=== PATIENT | female | born 1940 | race Caucasian/White ===

== ENCOUNTER → 2023-11-02 08:10 | Outpatient (REF) | payer MEDICARE, BC, SELFPAY ==
[2023-11-02 09:35] LABS: % Eosinophils 4.4 % (0-6); % Immature Granulocytes 0.4 % (0-0.5); % Lymphocytes 25.9 % (20.5-51.1); % Monocytes 8.1 % (1.7-9.3); % Neutrophils 60.2 % (42.2-75.2); Absolute Basophils 0.1 10^3/uL (0-0.2); Absolute Eosinophils 0.2 10^3/uL (0-0.7); Absolute Lymphocytes 1.3 10^3/uL (1.2-3.4); Absolute Monocytes 0.4 10^3/uL (0.1-0.6); Absolute Neutrophils 3.1 10^3/uL (1.4-6.5); Hematocrit 39.2 % (37.0-47.0); Mean Corp Hgb Conc. 33.2 g/dL (33.0-37.0); Mean Corpuscular Hgb 30.3 pg (27.0-31.0); Mean Corpuscular Volume 91.4 fL (81.0-99.0); Mean Platelet Volume 10.9 fL (7.4-10.4); Nucleated Red Blood Cells % 0 %; Platelet Count 256 10^3/uL (130-400); Red Blood Cell Count 4.29 10^6/uL (4.20-5.40); Red Cell Dist. Width 13.8 % (11.5-14.5); White Blood Cell Count 5.2 10^3/uL (4.8-10.8)
[2023-11-02 10:13] LABS: Erythrocyte Sed Rate 21 mm/hour (0-20)
[2023-11-02 10:17] LABS: C-Reactive Protein < 5.00 mg/L (0.0-10.00)
[2023-11-02 10:18] LABS: NT-proBNP 1470 pg/ml
[2023-11-02 10:35] LABS: Vitamin D, 25-OH*** 38.6 ng/mL (30-80)
[2023-11-02 10:48] LABS: TSH 1.69 uIU/ml (0.47-4.68)
[2023-11-02 11:09] LABS: ALT (SGPT) 16 U/L (0-35); AST (SGOT) 29 U/L (14-36); Albumin 4.5 g/dl (3.5-5.0); Alkaline Phosphatase 71 U/L (38-126); Blood Urea Nitrogen 16 mg/dl (7-17); Calcium 9.7 mg/dl (8.4-10.2); Carbon Dioxide 24 mmol/L (22-30); Chloride 97 mmol/L (98-107); Glucose 81 mg/dl (70-99); HDL Cholesterol 69 mg/dl; LDL Cholesterol, Calculated 136 mg/dl; Potassium 4.5 mmol/L (3.5-5.1); Sodium 132 mmol/L (135-145); Total Bilirubin 0.8 mg/dl (0.2-1.3); Total Cholesterol 221 mg/dl (50-199); Total Protein 7.6 g/dl (6.3-8.2); Triglyceride 84 mg/dl (10-149); Very Low Density Lipoprotein 16 mg/dl (0-30); eGFR > 60.00
[2023-11-03 15:35] LABS: Lyme Antibody Screen, EIA Presump. Positive (Negative)
[2023-11-05 17:03] LABS: Lyme Ab Western Blot IgG Negative (Negative); Lyme Ab Western Blot IgM Positive (Negative)
== END ==
LOC: REG 08:10
PROVIDERS: ATTENDING PHYSICIAN Family Medicine
DX: R53.83 Other fatigue (principal); M79.89 Other specified soft tissue disorders; E78.2 Mixed hyperlipidemia; E55.9 Vitamin D deficiency, unspecified
CPT/HCPCS: 36415; 80053; 80061; 82306; 83880; 84443; 85025; 85652; 86140; 86617; 86618

== ENCOUNTER → 2024-05-03 07:30 | Outpatient (REF) | payer MEDICARE, BC, SELFPAY ==
[2024-05-03 10:33] LABS: ALT (SGPT) 20 U/L (0-35); AST (SGOT) 26 U/L (14-36); Albumin 4.5 g/dl (3.5-5.0); Alkaline Phosphatase 64 U/L (38-126); Blood Urea Nitrogen 17 mg/dl (7-17); Calcium 9.9 mg/dl (8.4-10.2); Carbon Dioxide 31 mmol/L (22-30); Chloride 98 mmol/L (98-107); Glucose 80 mg/dl (70-99); HDL Cholesterol 70 mg/dl; LDL Cholesterol, Calculated 138 mg/dl; Potassium 4.8 mmol/L (3.5-5.1); Sodium 137 mmol/L (135-145); Total Bilirubin 0.6 mg/dl (0.2-1.3); Total Cholesterol 233 mg/dl (50-199); Total Protein 7.5 g/dl (6.3-8.2); Triglyceride 129 mg/dl (10-149); Very Low Density Lipoprotein 25 mg/dl (0-30); eGFR > 60.00
== END ==
LOC: REG 07:30
PROVIDERS: ATTENDING PHYSICIAN Family Medicine
DX: E78.2 Mixed hyperlipidemia (principal)
CPT/HCPCS: 36415; 80053; 80061

== ENCOUNTER 2024-09-05 17:38 | Inpatient (IN) | payer MEDICARE, BC, SELFPAY ==
[2024-09-05] VITALS (22 sets, daily range): BP systolic 86–141; BP diastolic 54–111; BMI 26.1
--- NOTE | 2024-09-05 14:58 | ED.GENMED ---
History of Present Illness
General
Chief Complaint: Heart Rate Problem
Source: patient and spouse
Time Seen by Provider: 09/05/24 14:41
History of Present Illness
History of Present Illness:
84-year-old female with past medical history of breast cancer, previous atrial fibrillation (not anticoagulated), hypertension presents to the emergency department for evaluation after she was alerted by her Fitbit around midnight last night stating
she was in an abnormal heart rhythm and her heart rate was high. Patient states that she was not having any symptoms at that time but does state this morning she did feel a little bit of palpitations and mildly short of breath. At present time,
patient notes she is asymptomatic and is denying any chest pain, shortness of breath, diaphoresis, exertional dyspnea, orthopnea, lower extremity edema (notes that she always has a little bit of mild ankle edema secondary to amlodipine use), fevers
or recent illnesses. Patient does note that she recently had a detached retina for which she had surgical procedures on Day and 1 week ago.
Past History
Past History
ED Past Medical History: Arrthythmia, Cancer (Breast cancer) and HTN
ED Past Surgical History: Other (Right lumpectomy)
Social History
Tobacco: Non-smoker
Alcohol: None
Drug: None
Personal:
Living: with family
Employment: Retired
Review of Systems
Review of Systems
All Other Systems: ROS reviewed and negative except as documented in HPI and ROS
Phy Exam
Physical Exam
Physical Exam:
GENERAL: Alert , in no apparent distress
EYE: Subconjunctival hemorrhage to the left eye secondary to recent surgery
NECK: Supple
ENT: o/p clr, mmm.
CARDIAC: Irregularly irregular, tachycardic with rates between 137 bpm and as high as 176 bpm
LUNGS: Clear breath sounds bilaterally, no acute respiratory distress,
ABDOMEN: Soft, without focal tenderness, no r/g, no cvat
NEUROLOGICAL: Alert and oriented
SKIN: Warm and dry, skin intact.
MUSCULOSKELETAL: Trace ankle edema b/l is baseline per patient, well perfused.
PSYCH: Normal and appropriate interaction.
Scores
[id number] Score for Afib Stroke Risk
Age in Years (65=0, 65-74=1, >/=75=2): > or = 75
Sex (Female=+1): Female
Congestive Heart Failure History (Yes=+1): No
Hypertension History (Yes=+1): Yes
Stroke/TIA/Thromboembolism History (Yes=+2): No
Vascular Disease History (Yes=+1): No
Diabetes Mellitus (Yes=+1): No
Score: 4
Anticoagulation Recommendations: Recommend anticoagulation (as validated in nonvalvular fib)
Heart Failure Risk
Heart Failure Risk Score: Not Applicable
Heart Score for Chest Pain Patients
STEMI patient?: Not applicable
Withdrawal Assessment of Alcohol
Withdrawal Assessment Completed?: Not applicable
Course
Orders/Labs/Results
Orders:
Orders
09/05/24 14:16
Electrocardiogram (*1) Urgent
Reason for Study: Palpitations
EKG- Treatment ONCE
09/05/24 14:55
Diltiazem HCl [Cardizem] 10 mg IV NOW STA
09/05/24 15:03
Complete Blood Count/With Diff Urgent
Comprehensive Metabolic Panel Urgent
Magnesium Urgent
PTT Urgent
Prothrombin Time Urgent
TSH Urgent
09/05/24 15:30
Diltiazem 125 mg/125 ml Nss [Cardizem] 125 mg in 125 ml IV PER PROTOCOL
Initial dose in mg/hr, then titrate:: 5
Titrate to keep:: Heart rate 80-100 bpm
Titrate by mg/hr:: 5 mg/hr
Frequency of titrations (minutes):: 15
Maximum dose in mg/hr:: 15
09/05/24 17:11
Admit/Transfer Patient As Directed
Co-Sign Provider:
Level of Care: Inpatient admission
Assign to:: IVU
Physician / Group: Ghazalay
Diagnosis: A-Fib with RVR
Reason for Hospitalization: Cardizem Drip
Expected length of stay greater than two midnights?: Yes
ELOS- Estimated Length of Stay in days: 3
I certify the patient meets the requirements for IP care: Yes
PRN Pain Medication Management As Directed
May give lesser potent ordered pain med per pt: Yes
preference::
Protocol:: Medication orders for pain may be administered in a
manner that supports deferring to patient preference
when the pt is:
- Requesting an ordered lesser potent pain medication.
Least to most potent pain medications are defined
as: acetaminophen < NSAID < tramadol < opioids
(morphine, oxycodone, hydromorphone).
- Requesting a lesser dose of the same medication IF
ORDERED.
- Requesting a less intrusive route of administration
if both routes are prescribed by the provider (PO <
IV).
09/05/24 17:22
Apixaban [Eliquis] 5 mg PO NOW STA
09/05/24 17:23
Code Status As Directed
Resuscitation Status: Full Code
Abnormal Lab Results
09/05/24
15:03
MCH 31.3 H pg
(27.0-31.0)
MPV 10.7 H fL
(7.4-10.4)
Absolute Monos (auto) 0.8 H 10^3/uL
(0.1-0.6)
Lymphocytes % 19.4 L %
(20.5-51.1)
Sodium 133 L mmol/L
(135-145)
BUN 22 H mg/dl
(7-17)
09/05/24 15:03
09/05/24 15:03
Vital Signs
Initial and Last Documented VS:
Initial Vital Signs
Pulse Resp BP Pulse Ox
163 20 137/97 100
09/05/24 14:24 09/05/24 14:24 09/05/24 14:24 09/05/24 14:24
Last Documented Vital Signs
Pulse Resp BP Pulse Ox
145 20 125/82 97
09/05/24 18:45 09/05/24 18:00 09/05/24 18:30 09/05/24 18:45
MDM/Problems Addressed
Differential Diagnosis Includes:
Cardiac arrhythmia, electrolyte derangement, no symptoms to suggest angina/ACS, thyroid disorder
MDM/Problems Addressed:
84-year-old female presenting to the ER for evaluation after her smart watch told her she had an abnormal heart rhythm. On arrival to the ER here patient had EKG performed which showed atrial fibrillation with rapid ventricular rate. Labs ordered.
Patient remains in A-fib with RVR on telemetry during my exam. At this time patient is not a candidate for synchronized cardioversion given she is unaware as to when symptoms may have started and currently asymptomatic so it is entirely possible
patient has had this ongoing for quite some time. Will treat with Cardizem bolus and infusion. Patient has an appointment scheduled with cardiology, Dr. Pichardo, this coming September but has yet to see him. Patient [id number] score is 4 and she
likely does need to be anticoagulated. Will defer heparin to hospitalist/cardiology. Anticipated admission.
Chronic conditions affecting care: Arrhythmia
Acute Exacerbation and/or Progression of Chronic Illness: Arrhythmia
*Pulse Oximetry
Patient hypoxic: no
*EKG
Heart Rate: 154
Rate: tachycardiac
Rhythm: a-fib
[place]: normal axis
*Chemistry Faculty Member Interpretation
Rate: tachycardiac
Rhythm: a-fib
*Critical Care Note
Total Time (30-74mins, 75-104mins- exclusive of procedures): 30
comment:
Critical care statement: A total of 30 minutes of critical care time was provided for this patient. This includes management of unstable vital signs, evaluation of the patient at bedside, reviewing the patient's pertinent medical records, discussion
with consultants, review of old EKGs and review of pertinent medical records. This time with separate from time utilized to perform the aforementioned documented procedures
Patient Management
Discussion with other providers: Hospitalist
Escalation/DeEscalation of care consider admission/obs:
Patient's labs reassuring. She showed improvement of her heart rate to about 120 bpm with Cardizem infusion. Hospitalist team notified and accepts for continued evaluation and treatment. They will consult with cardiology team for further
management.
ED Attending Note
-
Portions of this chart may have been created with voice recognition software.� Occasional wrong word or��sound alike� substitutions may have occurred due to the inherent limitations of voice recognition software.
Discharge Plan
Departure
Patient Disposition: Admit
Date of Disposition: 09/05/24
Time of Disposition: 16:19
Presentation/result/management discussed w/ accepting MD/DO: Hospitalist
Discharge Problem:
Atrial fibrillation with rapid ventricular response
Interventions
Interventions:
*Risk Screen - Suicide Last Done: 09/05/24 14:24
*General Assessment Last Done: 09/05/24 15:12
*Neglect/Abuse Screening Last Done: 09/05/24 15:12
ED- Fall Risk Assessment Last Done: 09/05/24 15:12
ED- Cardiac Assessment Last Done: 09/05/24 15:12
ED- Pulmonary Assessment Last Done: 09/05/24 15:12
[2024-09-05] MEDS: CARDIZEM 10 MG IV (15:03)
[2024-09-05 15:30] LABS: % Basophils 0.7 % (0-2); % Eosinophils 1.8 % (0-6); % Immature Granulocytes 0.5 % (0-0.5); % Lymphocytes 19.4 % (20.5-51.1); % Monocytes 8.7 % (1.7-9.3); % Neutrophils 68.9 % (42.2-75.2); Absolute Basophils 0.1 10^3/uL (0-0.2); Absolute Eosinophils 0.2 10^3/uL (0-0.7); Absolute Lymphocytes 1.7 10^3/uL (1.2-3.4); Absolute Monocytes 0.8 10^3/uL (0.1-0.6); Absolute Neutrophils 6.1 10^3/uL (1.4-6.5); Hematocrit 40.8 % (37.0-47.0); Mean Corp Hgb Conc. 34.3 g/dL (33.0-37.0); Mean Corpuscular Hgb 31.3 pg (27.0-31.0); Mean Corpuscular Volume 91.3 fL (81.0-99.0); Mean Platelet Volume 10.7 fL (7.4-10.4); Nucleated Red Blood Cells % 0 %; Platelet Count 280 10^3/uL (130-400); Red Blood Cell Count 4.47 10^6/uL (4.20-5.40); Red Cell Dist. Width 13.8 % (11.5-14.5); White Blood Cell Count 8.8 10^3/uL (4.8-10.8)
[2024-09-05 15:34] LABS: INR 0.93
[2024-09-05 15:36] LABS: ALT (SGPT) 17 U/L (0-35); AST (SGOT) 20 U/L (14-36); Albumin 4.2 g/dl (3.5-5.0); Alkaline Phosphatase 78 U/L (38-126); Blood Urea Nitrogen 22 mg/dl (7-17); Calcium 9.5 mg/dl (8.4-10.2); Carbon Dioxide 26 mmol/L (22-30); Chloride 99 mmol/L (98-107); Estimated Creatinine Clearance 42 ml/min; Glucose 93 mg/dl (70-99); Magnesium 1.9 mg/dl (1.6-2.3); Potassium 4.6 mmol/L (3.5-5.1); Sodium 133 mmol/L (135-145); Total Bilirubin 0.6 mg/dl (0.2-1.3); Total Protein 7.1 g/dl (6.3-8.2); eGFR > 60.00
[2024-09-05] MEDS: CARDIZEM 125 IV (15:42)
[2024-09-05 16:06] LABS: TSH 2.12 uIU/ml (0.47-4.68)
--- NOTE | 2024-09-05 16:25 | HPS.HSE ---
Family Physician
-
Family Physician: Max Dorsey
Chief Complaint
-
Dizziness and Palpitations
History of Present Illness
Patient is an 84 y/o female past medical history of hypertension, hyperlipidemia, breast cancer and recent retinal detachment surgery who presents with dizziness, palpitation and elevated heart rate. Patient reports over the past few week her
FitBit has been indicating episodes of atrial fibrillation at night. Today after breakfast she was walking around and her FibBit alerted that her heart rate was very elevated. She reports associated dizziness and palpitations. She reports long
history of 'extra heart beats' but has never been diagnosed with atrial fibrillation.
Medical History
Past Medical History
Past Medical History: Reports Other
Additional Past Medical History:
Essential Hypertension
Hyperlipidemia
Breast Cancer s/p Left Lumpectomy
Past Surgical History: Reports Other
Additional Past Surgical History:
Detached Retina Surgery
Left Breast Lumpectomy
Social History
Tobacco: Former Smoker (Quit at age 40)
Alcohol: None
Family History
Family History: Not pertinent
Allergies / Home Medications
Allergies reflects when Allergies were last updated in [facility].
Home Medications with original date entered in [facility]
Allergy/Medication List:
Allergies
Allergy/AdvReac Type Severity Reaction Status Date / Time
Sulfa (Sulfonamide Allergy Severe Anaphylaxis Verified 09/05/24 14:25
Antibiotics)
Home Medications
atenolol 25 mg tablet 25 mg PO QPM 02/04/19
Cbd Gummies 25 mg PO HSPRN PRN sleep 09/05/24
acetaminophen 500 mg tablet (Tylenol Extra Strength) 1,000 mg PO Q6HPRN PRN mild pain 09/05/24
amlodipine 2.5 mg tablet 2.5 mg PO QPM 09/05/24
aspirin 81 mg chewable tablet 81 mg PO DAILYPRN PRN irregular heartbeat 09/05/24
cholecalciferol (vitamin D3) 125 mcg (5,000 unit) tablet (Vitamin D3) 125 mcg PO QPM 09/05/24
erythromycin 5 mg/gram (0.5 %) eye ointment 1 applic LEFT EYE QPM 09/05/24
prednisolone acetate 1 % eye drops,suspension 1 drp LEFT EYE .TAPER 09/05/24
red yeast rice 600 mg tablet 600 mg PO QPM 09/05/24
Review of Systems
-
A 12 point ROS was completed and negative except as noted: Yes
Constitutional: Denies Fever or Chills
Respiratory: Denies Cough or Trouble Breathing
Cardiac: Reports See HPI
Physical Exam
Vital Signs
Vital Signs
Pulse Resp BP Pulse Ox
129 16 136/110 97
09/05/24 16:15 09/05/24 16:00 09/05/24 16:00 09/05/24 16:15
Physical Exam
General: Comfortable and Conversant
HEENT: Anicteric and Moist mucous membranes
Respiratory: Clear and Non Labored Respirations
Cardiac: S1/S2, Irregular Rhythm and Tachycardia
GI: Soft and Non Tender
Rectal: Deferred by Provider
Musculoskeletal: No Clubbing, No Cyanosis and No Edema
Skin: Warm and Dry
Neuro: Awake, Alert, Oriented and Nonfocal/grossly intact
Psych: Calm
Laboratory Results
-
09/05/24 15:03
09/05/24 15:03
Laboratory Results
PT 13.0 Sec (11.4-14.6) 09/05/24 15:03
INR 0.93 09/05/24 15:03
APTT 27.0 Sec (23.4-35.0) 09/05/24 15:03
Total Bilirubin 0.6 mg/dl (0.2-1.3) 09/05/24 15:03
AST 20 U/L (14-36) 09/05/24 15:03
ALT 17 U/L (0-35) 09/05/24 15:03
Alkaline Phosphatase 78 U/L (38-126) 09/05/24 15:03
Data Reviewed
-
Medical Tests (Nuc Med, Echo, EKG etc): Report Reviewed by me (ECG)
Lab Data: Labs Reviewed by me
Impression/Plan
-
Atrial Fibrillation with Rapid Ventricular Response
-Consult Cardiology
-Check Echo
-Continue Cardizem Drip
Recent Left Retina Detachment
-Initial surgery on Jul 17, followed by secondary surgery on Aug 29
-Spoke with Dr. Bonifacio Johns on-call provider for [facility] who reports No Contraindication to starting anticoagulation
Essential Hypertension
-Hold atenolol while on Cardizem drip
-Continue amlodipine with hold parameters
DVT proph: Eliquis
Code Status: Full Code
--- NOTE | 2024-09-05 16:40 | W.PN.UPDATE ---
Addendum entered and electronically signed by Damion Paul MD 09/05/24 17:36:
Recent Left Retina Detachment HX; Initial surgery on Jul 17, followed by secondary surgery on Aug 29
-Pastora SINGH spoke with Dr. Bonifacio Johns on-call provider for [facility] who reports
- No Contraindication to starting anticoagulation for A Fib
Hence, will start Eliquis 5mg BID for new diagnosis of A Fib
Original Note:
Update Note
Progress Note Update
This note serves as an addendum to the H&P by fan installer JOSEPHINE
Pastora DIETERICK
HPI
84F HX Prx AF, Not on AC, HTN, HX Breast CA seen at ER:
- alerted by Laury WALLACE for abn heart rythym
- Noted Hi HR
- this morning she felt palpitations and mildly short of breath.
ROS
At present time, patient notes she is asymptomatic and is denying any chest pain, shortness of breath, diaphoresis, exertional dyspnea, orthopnea, lower extremity edema (notes that she always has a little bit of mild ankle edema secondary to
amlodipine use), fevers or recent illnesses. P
Reviewed VS: BP 135/110 HR 130
PE
Gen: NAD
HEENT: Subconjunctival hemorrhage to the left eye secondary to recent surgery
Neck: symmetric face
Lungs: clear
Cor: Irregularly irregular, tachycardic with rates between 137 bpm and as high as 176 bpm
Abdomen: benign exam
INSTRUCTOR BRIDGE: AAO3
MS: n edema
Psych: neg
Data
Unremarkable CBC and BMP
EKG report
UNDETERMINED RHYTHM
INFERIOR INFARCT , AGE UNDETERMINED
CANNOT RULE OUT ANTERIOR INFARCT , AGE UNDETERMINED
ABNORMAL ECG
WHEN COMPARED WITH ECG OF 05-APR-2001 11:21,
CURRENT UNDETERMINED RHYTHM PRECLUDES RHYTHM COMPARISON, NEEDS REVIEW
QUESTIONABLE CHANGE IN QRS DURATION
INFERIOR INFARCT IS NOW PRESENT
ASSESSMENT & PLAN
Prx AF with FVR
[id number] score -4.8 percent stroke risk per yr ( 1 for age, 1 female 2 for HTN)
- agree rate control with Diltiazem gtt
- ECHO in AM
- CBC card consult to eval for AC
Benign HTN
- cont. Amlodipine
DVT Px: LMWH
Code: Full code
IVU
[2024-09-05] MEDS: ELIQUIS 5 MG PO (17:41)
--- NOTE | 2024-09-05 18:08 | CON.CAR ---
Addendum entered and electronically signed by Adriano Sosa MD 09/05/24 18:30:
I saw and examined the patient.
The WARP WORKER's note was reviewed and I agree with the note.
84-year-old woman with a history of hypertension, breast cancer and recent retinal detachment with last surgical procedure 08/29/2023. Patient presented because her Fitbit had shown fast A-fib. Patient reportedly has had intermittent recordings on
her Fitbit in addition there was a report that she may have had A-fib or an irregular rhythm during her recent echocardiogram. Plan was for outpatient assessment but now presents with an A-fib with RVR. Patient did not feel as well in A-fib,
decreased endurance. No palpitations or heart racing. No history of stroke, diabetes, heart failure, PAD or CAD. No bleeding issues. Note that Dr. Paul did have communication with ophthalmology and no contraindication anticoagulation reported.
Based on the above I would suggest the following
-IV Cardizem for rate control
-Initiate Eliquis
-Will see if patient is having paroxysmal atrial fibrillation and spontaneously converts to sinus rhythm. May be a bit more challenging to consider LALI cardioversion in this patient who has restriction in her positioning post retinal procedure and
is not supposed to lay on her back. If remains in A-fib may consider just continue with rate control and anticoagulation for > 3 weeks and then proceeding with cardioversion
Original Note:
Consultation
Consultation Request
Date/Time Consultation Requested: 09/05/241699
Date/Time Consultation Performed: 09/05/241729
Requesting Provider: Desi BOLANOS
Performing Provider: Jesica MCCARTNEY for Dr. Sosa
Reason for Consultation: AFIB
Medical History
-
Chief Complaint: AFIB
History of Present Illness:
84 y/o female with hypertension, breast CA 2011 with surgery, chemo, radiation, and recent retinal detachment with surgery (July and last week) who is here for evaluation after her smart watch told her she had fast AFIB. She felt worn out with
ambulation, which is unusual for her. She was seen to be in AFIB with RVR. She is on a diltiazem drip. She is in no distress at the time of my assessment.
Of note, she was scheduled to see Dr. Pichardo in October as a new patient for possible AFIB (noted by watch and on an echo prior to her eye surgery per report).
Past Medical History
Past Medical History: Cancer and HTN
Social History
Tobacco: Non-Smoker
Alcohol: None
Personal:
Living: With Family
Family History
Family History: CAD (dad MA age 70) and Other (mom AFIB, CHF)
Allergies / Home Medications
Allergy/AdvReac Type Severity Reaction Status Date / Time
Sulfa (Sulfonamide Allergy Severe Anaphylaxis Verified 09/05/24 14:25
Antibiotics)
�Medication �Instructions �Recorded �Confirmed �Type
atenolol 25 mg tablet 25 mg PO QPM 02/04/19 09/05/24 History
Cbd Gummies 25 mg PO HSPRN PRN sleep 09/05/24 09/05/24 History
acetaminophen 500 mg tablet 1,000 mg PO Q6HPRN PRN mild pain 09/05/24 09/05/24 History
(Tylenol Extra Strength)
amlodipine 2.5 mg tablet 2.5 mg PO QPM 09/05/24 09/05/24 History
aspirin 81 mg chewable tablet 81 mg PO DAILYPRN PRN irregular 09/05/24 09/05/24 History
heartbeat
cholecalciferol (vitamin D3) 125 125 mcg PO QPM 09/05/24 09/05/24 History
mcg (5,000 unit) tablet (Vitamin
D3)
erythromycin 5 mg/gram (0.5 %) eye 1 applic LEFT EYE QPM 09/05/24 09/05/24 History
ointment
prednisolone acetate 1 % eye 1 drp LEFT EYE .TAPER 09/05/24 09/05/24 History
drops,suspension
red yeast rice 600 mg tablet 600 mg PO QPM 09/05/24 09/05/24 History
Review of Systems
-
History Source: Patient
All other systems: Negative unless noted
Constitutional: Other ('punky' with ambulation)
Physical Exam
Vital Signs
Pulse Resp BP Pulse Ox
134 16 120/96 97
09/05/24 17:45 09/05/24 17:00 09/05/24 17:30 09/05/24 17:45
Lab Results
09/05/24 15:03
09/05/24 15:03
Physical Exam
General: Well Developed, Well Nourished and No Apparent Distress
HEENT: Normocephalic and Anicteric
Respiratory: Clear and Non Labored Respirations
Cardiac: Irregular Rhythm
Musculoskeletal: No Edema
Skin: Warm and Dry
Neuro: AO x 3
Psych: Calm
Impression / Plan
-
AFIB, new diagnosis- type and onset unclear:
-continue diltiazem drip for now- this requires intensive monitoring
-patient had recent eye surgery and is not able to lay flat. Will hold off on LALI/CV at this time.
-[id number] score is 4 for age, female, HTN. Primary team checked with Will's eye provider and okay for OAC. Eliquis initiated.
-check echo
-TSH
HTN:
-monitor on diltiazem drip
Data Reviewed
-
EKG: Tracing Personally Visualized and interpreted (AFIB with RVR)
Medical Tests (Nuc Med, Echo etc): Other (echo ordered; holter 07/19/23: Normal sinus rhythm with frequent PAC's and PVC's and short runs of atrial tachycardia.)
Labs: Labs Reviewed by me
--- NOTE | 2024-09-05 20:19 | EDRN ---
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
[2024-09-05] MEDS: PRED FORTE 1% EYE DROPS LEFT EYE (20:55)
[2024-09-05] MEDS: ERYTHROMYCIN 0.5% OPHTHALMIC OINTMENT LEFT EYE (20:55)
[2024-09-05] MEDS: NORVASC 2.5 MG PO (21:01)
[2024-09-05] MEDS: ERYTHROMYCIN 0.5% OPHTHALMIC OINTMENT 1 APPLIC LEFT EYE (21:01)
[2024-09-05] MEDS: PRED FORTE 1% EYE DROPS 1 DROP LEFT EYE (21:01)
[2024-09-06] VITALS (28 sets, daily range): BP systolic 90–127; BP diastolic 57–92; BMI 26.1; BMI 26.2
[2024-09-06] MEDS: TORADOL 10 MG IV (00:35)
[2024-09-06] MEDS: MELATONIN 5 MG PO ×2 (00:54→21:04)
[2024-09-06 06:21] LABS: Hematocrit 38.2 % (37.0-47.0); Mean Corpuscular Volume 91.2 fL (81.0-99.0); Mean Platelet Volume 10.8 fL (7.4-10.4); Platelet Count 266 10^3/uL (130-400); Red Blood Cell Count 4.19 10^6/uL (4.20-5.40); White Blood Cell Count 6.7 10^3/uL (4.8-10.8)
[2024-09-06 06:46] LABS: Blood Urea Nitrogen 13 mg/dl (7-17); Calcium 9.3 mg/dl (8.4-10.2); Carbon Dioxide 24 mmol/L (22-30); Chloride 100 mmol/L (98-107); Estimated Creatinine Clearance 54 ml/min; Glucose 89 mg/dl (70-99); Potassium 4.4 mmol/L (3.5-5.1); Sodium 133 mmol/L (135-145); eGFR > 60.00
[2024-09-06] MEDS: PRED FORTE 1% EYE DROPS 1 DROP LEFT EYE ×3 (08:16→20:03)
[2024-09-06] MEDS: ELIQUIS 5 MG PO ×2 (08:16→20:03)
[2024-09-06] MEDS: CARDIZEM 125 IV ×2 (09:11→17:33)
--- NOTE | 2024-09-06 12:28 | W.PN.HOSP.TC ---
Today's Communication/Plan
-
Monitor vital signs see plan
Continue with Cardizem drip
echo
Continue Eliquis
Assessment / Plan
Assessment / Plan
General: Comfortable and Conversant
HEENT: Anicteric and Moist mucous membranes
Respiratory: Clear and Non Labored Respirations
Cardiac: S1/S2, Irregular Rhythm and Tachycardia
GI: Soft and Non Tender
Musculoskeletal: No Edema
Neuro: Awake, Alert, Oriented and Nonfocal/grossly intact
Psych: Calm
Atrial Fibrillation with Rapid Ventricular Response
Cardiology following
Echo with preserved EF
-Continue Cardizem Drip
TSH wnl
Recent Left Retina Detachment
-Initial surgery on Jul 17, followed by secondary surgery on Aug 29
-Spoke with Dr. Bonifacio Johns on-call provider for [facility] who reports No Contraindication to starting anticoagulation
Essential Hypertension
-Hold atenolol while on Cardizem drip
-Continue amlodipine with hold parameters
DVT proph: Eliquis
Code Status: Full Code
Anticipated Discharge: 24 - 48 hours
Subjective/Interval History
-
Date of Service: September 06, 2024
Denies chest pain
Objective Data
-
Labs:
Laboratory Results
09/06/24
05:33
WBC 6.7
Hgb 13.0
Hct 38.2
Plt Count 266
Sodium 133 L
Potassium 4.4
Chloride 100
Carbon Dioxide 24
BUN 13
Creatinine 0.7
Glucose 89
Calcium 9.3
Vital Signs:
Vital Signs
Temp Pulse Resp BP Pulse Ox
98.7 F 94 16 109/63 96
09/06/24 08:21 09/06/24 10:30 09/06/24 08:21 09/06/24 10:00 09/06/24 11:22
I&O
09/05/24 09/06/24 09/07/24
06:59 06:59 06:59
Intake Total 240 / 240
Balance 240 / 240
--- NOTE | 2024-09-06 13:34 | CM ---
CM following re: discharge planning.
CM consulted to check the arvizu for Eliquis 5mg BID. CM called [facility] pharmacy and the arvizu is $530.00 for 30 day supply.
Reviewed pt's chart, met with pt.
Pt is an 84 year old female, admitted with primary dx of Atrial Fibrillation with Rapid Ventricular Response.
Pt reports she lives with 2SH, 2 steps to enter, has 5 supportive children. 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 No DME, VN or SNF history.
Pt is informed of Eliquis arvizu $530.00 for 30 day supply and pt stated she has $3000.00 deductible and pt stated she will afford to pay. Free 30 days coupon provided.
PCP: Max Dorsey
Pharmacy: [facility].
D/C plan: home with anticipated no needs. family to transport at discharge.
CM will follow with discharge plan updates as hospitalization progresses
--- NOTE | 2024-09-06 14:26 | W.PN.CD ---
Today's Communication / Plan
-
- ECHO today
- Diltiazem gtt for rate control
- Eliquis 5 mg BID
Impression / Plan
-
AFIB, new diagnosis- type and onset unclear:
-continue diltiazem drip for now- this requires intensive monitoring
-Wean off Diltiazem with oral loading.
-Will discontinue Amlodipine and Atenolol and start Ditliazem
-patient had recent eye surgery and is not able to lay flat. Will hold off on LALI/CV at this time.
-[id number] score is 4 for age, female, HTN.
-Eliquis is started at 5 mg BID. Primary team checked with Will's eye provider and okay for OAC.
-Echo: 09/06/24: LVEF 60%. Essentially normal - Mild AI.
-TSH 2.12
HTN:
-monitor on diltiazem drip
- Hold Atenolol and Amlodipine.
- Start Diltiazem 240 mg from AM.
Physical Exam
Vital Signs/Labs
Vital Signs
Temp Pulse Resp BP Pulse Ox
98.3 F 94 16 109/63 96
09/06/24 12:40 09/06/24 10:30 09/06/24 08:21 09/06/24 10:00 09/06/24 11:22
09/05/24 09/06/24 09/07/24
06:59 06:59 06:59
Actual Weight 69.264 kg
09/06/24 05:33
09/06/24 05:33
PT 13.0 Sec (11.4-14.6) 09/05/24 15:03
INR 0.93 09/05/24 15:03
APTT 27.0 Sec (23.4-35.0) 09/05/24 15:03
Magnesium 1.9 mg/dl (1.6-2.3) 09/05/24 15:03
TSH 2.12 uIU/ml (0.47-4.68) 09/05/24 15:03
Physical Exam
Constitutional: No acute distress and Comfortable
EENT: Anicteric and Moist mucous membranes
Cardiovascular: Pedal edema is absent, JVD pressure is normal, Rhythm/rate is irregular and Murmur/rub/gallop absent
Respiratory: Respiratory effort normal, Wheeze Absent and Crackles Absent
GI: Soft, Normal bowel sounds and Distention present
Neuro/Psych: Alert, Oriented and AO x 3
Data Reviewed
-
Date of Service: September 06, 2024
Medical Decision Making: Reviewed Test Results, Test Interpretation and Review of Case with other Provider
EKG: Tracing Personally Visualized and interpreted
Echo: Report Reviewed by me
Labs: Labs Reviewed by me
Old Records: Reviewed
[2024-09-06] MEDS: LANOXIN 250 MCG IV (16:30)
[2024-09-06] MEDS: ERYTHROMYCIN 0.5% OPHTHALMIC OINTMENT 1 APPLIC LEFT EYE (17:34)
[2024-09-06] MEDS: TYLENOL 1000 MG PO (21:04)
[2024-09-07] VITALS (18 sets, daily range): BP systolic 91–117; BP diastolic 58–86; BMI 25.9; BMI 26.3
[2024-09-07 06:25] LABS: Hematocrit 36.4 % (37.0-47.0); Hemoglobin 12.5 g/dL (12.0-16.0); Mean Corp Hgb Conc. 34.3 g/dL (33.0-37.0); Mean Corpuscular Hgb 31.3 pg (27.0-31.0); Mean Corpuscular Volume 91.2 fL (81.0-99.0); Mean Platelet Volume 10.6 fL (7.4-10.4); Platelet Count 239 10^3/uL (130-400); Red Blood Cell Count 3.99 10^6/uL (4.20-5.40); Red Cell Dist. Width 13.7 % (11.5-14.5); White Blood Cell Count 5.6 10^3/uL (4.8-10.8)
[2024-09-07 06:52] LABS: Blood Urea Nitrogen 9 mg/dl (7-17); Calcium 8.8 mg/dl (8.4-10.2); Carbon Dioxide 27 mmol/L (22-30); Chloride 100 mmol/L (98-107); Estimated Creatinine Clearance 54 ml/min; Glucose 94 mg/dl (70-99); Potassium 4.4 mmol/L (3.5-5.1); Sodium 131 mmol/L (135-145); eGFR > 60.00
[2024-09-07] MEDS: CARDIZEM 125 IV (07:01)
[2024-09-07] MEDS: ELIQUIS 5 MG PO ×2 (07:42→20:00)
[2024-09-07] MEDS: CARDIZEM CD 240 MG PO (07:42)
[2024-09-07] MEDS: PRED FORTE 1% EYE DROPS 1 DROP LEFT EYE ×3 (07:43→20:01)
[2024-09-07] MEDS: TOPROL XL 37.5 MG PO ×2 (11:16→20:01)
--- NOTE | 2024-09-07 11:27 | W.PN.HOSP.TC ---
Today's Communication/Plan
-
Monitor vital signs
see plan
Remains in A-fib, uncontrolled
Discussed with cardiology, now on Cardizem and metoprolol
Assessment / Plan
Assessment / Plan
General: Comfortable and Conversant
HEENT: Anicteric and Moist mucous membranes
Respiratory: Clear and Non Labored Respirations
Cardiac: S1/S2, Irregular Rhythm and Tachycardia
GI: Soft and Non Tender
Musculoskeletal: No Edema
Neuro: Awake, Alert, Oriented and Nonfocal/grossly intact
Psych: Calm
Atrial Fibrillation with Rapid Ventricular Response
Cardiology following
Echo with preserved EF
Remains in atrial fibrillation this morning, uncontrolled. Discussed with cardiology. Started metoprolol along with Cardizem.Monitor for hypotension.
patient had recent eye surgery and is not able to lay flat. will try to do cardioversion
cw eliquis
TSH wnl
Recent Left Retina Detachment
-Initial surgery on Jul 17, followed by secondary surgery on Aug 29
-Spoke with Dr. Bonifacio Johns on-call provider for [facility] who reports No Contraindication to starting anticoagulation
Essential Hypertension
Hold atenolol and amlodipine
Continue Cardizem and metoprolol
DVT proph: Eliquis
Code Status: Full Code
Anticipated Discharge: Within 24 hours
Subjective/Interval History
-
Date of Service: September 07, 2024
Anxious this morning
Objective Data
-
Labs:
Laboratory Results
09/07/24
06:05
WBC 5.6
Hgb 12.5
Hct 36.4 L
Plt Count 239
Sodium 131 L
Potassium 4.4
Chloride 100
Carbon Dioxide 27
BUN 9
Creatinine 0.7
Glucose 94
Calcium 8.8
Vital Signs:
Vital Signs
Temp Pulse Resp BP Pulse Ox
97.7 F 95 18 110/67 95
09/07/24 07:50 09/07/24 11:16 09/07/24 09:30 09/07/24 11:16 09/07/24 09:49
I&O
09/06/24 09/07/24 09/08/24
06:59 06:59 06:59
Intake Total 240 / 240 1140 / 1140 262.4 / 262.4
Balance 240 / 240 1140 / 1140 262.4 / 262.4
--- NOTE | 2024-09-07 12:41 | W.PN.CD ---
Today's Communication / Plan
-
stop diltiazem drip
increase PO diltiazem to 180mg bid
add Toprol XL 37.5mg bid, and titrate
continue eliquis
Impression / Plan
-
AFIB, RVR, new diagnosis- type and onset unclear:
-Echo: 09/06/24: LVEF 60%. Essentially normal - Mild AI.
-patient had recent eye surgery and is not able to lay flat. Will hold off on LALI/CV at this time. Will check with Will's eye to see when could perform LALI/DCCV if needed.
-[id number] score is 4 for age, female, HTN.
-Eliquis is started at 5 mg BID. Primary team checked with Will's eye provider and okay for OAC.
-stop diltiazem drip
-increase PO diltiazem to 180mg bid
-add Toprol XL 37.5mg bid, and titrate
HTN:
-monitor BP with meds changes
Physical Exam
Vital Signs/Labs
Vital Signs
Temp Pulse Resp BP Pulse Ox
97.5 F 111 17 110/67 95
09/07/24 12:07 09/07/24 12:00 09/07/24 12:00 09/07/24 11:16 09/07/24 09:49
09/06/24 09/07/24 09/08/24
06:59 06:59 06:59
Actual Weight 69.264 kg 68.266 kg
09/07/24 06:05
09/07/24 06:05
PT 13.0 Sec (11.4-14.6) 09/05/24 15:03
INR 0.93 09/05/24 15:03
APTT 27.0 Sec (23.4-35.0) 09/05/24 15:03
Magnesium 1.9 mg/dl (1.6-2.3) 09/05/24 15:03
TSH 2.12 uIU/ml (0.47-4.68) 09/05/24 15:03
Physical Exam
Constitutional: No acute distress and Comfortable
EENT: Moist mucous membranes
Cardiovascular: Pedal edema is absent, JVD pressure is normal, Systolic murmur absent and Rhythm/rate is irregular
Respiratory: Respiratory effort normal and Lungs clear to auscul.
Neuro/Psych: AO x 3
Data Reviewed
-
Date of Service: September 07, 2024
EKG: Other (Tele: A fib avg 110s)
Labs: Labs Reviewed by me
[2024-09-07] MEDS: MIRALAX 17 GRAMS PO (13:15)
--- NOTE | 2024-09-07 13:44 | PTCARENOTE ---
Verbal report called to receiving RN Fiona in IVU. This Rn will transport pt on monitors in wheel chair with all belongings.
--- NOTE | 2024-09-07 14:34 | PTCARENOTE ---
Rec'd Pt A,A+Ox3, She is in A-fib on the monitor, denies SOB, denies Pain, pleasant and cooperative.
--- NOTE | 2024-09-07 15:10 | CM ---
CM following for DC planning needs.
Met w/ patient and spouse at bedside. Pt. transferred to IVU from ED hold.
Pt. is indep. at baseline w/ ADLs, mobility without the use of any assisted device.
Prior CM had priced Eliquis, estimated to be at 530/month supply.
I had called patient's insurance, [facility] to clarify: [phone]. Spoke w/ medical representative-once annual deductible is met, cost of Eliquis is estimated to be lowered to $120/mo.
I reviewed this with patient and spouse and they are able to afford this. They were given a free 30 d coupon and still have this to use.
No other anticipated needs @ DC.
PLAN: HOME, no needs.
--- NOTE | 2024-09-07 16:07 | PN.CDI ---
CDI
- -
CDI:
Physician Documentation Request
Admit Date: 09/05/24 17:38
Dear Doctor Km,
Patient admitted for atrial fibrillation.
Laboratory Tests
09/05/24 09/06/24 09/07/24
15:03 05:33 06:05
Sodium 133 L 133 L 131 L
Based on the above, could you clarify in the progress notes, the appropriate diagnosis, if significant, that supports the above abnormalities and additional evaluation, monitoring and/or treatment rendered:
Hyponatremia
Lab value insignificant
Other
Use of terms such as suspected, likely, concern for, or probable (associated with a specific diagnosis that is being evaluated, monitored, or treated as if it exists) are acceptable and can be coded in the inpatient setting, when documented at the
time of discharge.
Thank you,
Pita Smith RN, BSN
CDI Specialist
Available via Elizabeth text
Please use your independent medical judgment in providing your response.
[2024-09-07] MEDS: ERYTHROMYCIN 0.5% OPHTHALMIC OINTMENT 1 APPLIC LEFT EYE (18:29)
[2024-09-07] MEDS: CARDIZEM CD 180 MG PO (20:00)
--- NOTE | 2024-09-07 21:11 | PTCARENOTE ---
Received patient at change of shift. Afib on the monitor, HR in the 100s. Educated patient on the purpose on anticoagulation with Afib, pt verbalizes understanding. No complaints from pt at this time, call kevin within reach.
[2024-09-07] MEDS: MELATONIN 5 MG PO (21:30)
[2024-09-08] VITALS (8 sets, daily range): BP systolic 101–125; BP diastolic 63–107; BMI 25.8
[2024-09-08 03:27] LABS: Hematocrit 43.6 % (37.0-47.0); Hemoglobin 14.8 g/dL (12.0-16.0); Mean Corp Hgb Conc. 33.9 g/dL (33.0-37.0); Mean Corpuscular Hgb 31.5 pg (27.0-31.0); Mean Corpuscular Volume 92.8 fL (81.0-99.0); Mean Platelet Volume 10.5 fL (7.4-10.4); Platelet Count 272 10^3/uL (130-400); Red Cell Dist. Width 13.6 % (11.5-14.5); White Blood Cell Count 8.2 10^3/uL (4.8-10.8)
[2024-09-08 03:42] LABS: Blood Urea Nitrogen 7 mg/dl (7-17); Calcium 9.5 mg/dl (8.4-10.2); Carbon Dioxide 27 mmol/L (22-30); Chloride 98 mmol/L (98-107); Estimated Creatinine Clearance 54 ml/min; Glucose 97 mg/dl (70-99); Potassium 4.4 mmol/L (3.5-5.1); Sodium 134 mmol/L (135-145); eGFR > 60.00
--- NOTE | 2024-09-08 06:38 | W.PN.HOSP.TC ---
Today's Communication/Plan
-
Uncontrolled A fib
Remains on BB and CCB
Assessment / Plan
Assessment / Plan
Physical exam:
General: Comfortable and Conversant
HEENT: Anicteric and Moist mucous membranes
Respiratory: Clear and Non Labored Respirations
Cardiac: S1/S2, Irregular Rhythm and Tachycardia
GI: Soft and Non Tender
Musculoskeletal: No Edema
Neuro: Awake, Alert, Oriented and Nonfocal/grossly intact
Psych: Calm
#Paroxysmal Atrial Fibrillation with Rapid Ventricular Response
She feels palpitation upon exertion
Echo with preserved EF
Started metoprolol along with Cardizem. Monitor for hypotension.
patient had recent eye surgery and is not able to lay flat. will try to do cardioversion
cw Eliquis
TSH wnl
#Recent Left Retina Detachment
-Initial surgery on Jul 17, followed by secondary surgery on Aug 29
-Spoke with Dr. Bonifacio Johns on-call provider for [facility] who reports No Contraindication to starting anticoagulation
# Hyponatremia
Mild
#Essential Hypertension
Hold atenolol and amlodipine
Continue Cardizem and metoprolol
DVT proph: Eliquis
Code Status: Full Code
Total time spent to see the patient on the floor, examine the patient, review data and lab results, discuss treatment plan with patient, nursing staff around 55 minutes
Anticipated Discharge: 24 - 48 hours
Subjective/Interval History
-
Date of Service: September 08, 2024
no chest pain
No sob
Still palpitation upon exertion
Objective Data
-
Labs:
Laboratory Results
09/08/24
03:07
WBC 8.2
Hgb 14.8
Hct 43.6
Plt Count 272
Sodium 134 L
Potassium 4.4
Chloride 98
Carbon Dioxide 27
BUN 7
Creatinine 0.7
Glucose 97
Calcium 9.5
Vital Signs:
Vital Signs
Temp Pulse Resp BP Pulse Ox
98 F 99 18 102/70 100
09/08/24 03:09 09/07/24 23:51 09/08/24 03:09 09/07/24 23:51 09/08/24 03:09
I&O
09/06/24 09/07/24 09/08/24
06:59 06:59 06:59
Intake Total 240 / 240 1140 / 1140 472.4 / 472.4
Balance 240 / 240 1140 / 1140 472.4 / 472.4
--- NOTE | 2024-09-08 08:05 | PTCARENOTE ---
Assumed care of pt from prev nsg shift; Pt AAOx3 w/no c/o CP or SOB. Pt's VSS w/HR in the 80's-100's at rest & in the 130's-140's w/activity, which she is limiting. Pt's BP 104/78 this AM. Pt is Afib on telemetry monitoring. Afib book given to &
discussed w/pt & her spouse who is at bedside. Pt requesting to use her prednisone ointment, instead of the drops prescribed here. Dr Brennan notified for order for pharmacy. Pt w/call kvein within reach & no addtl needs at this time.
[2024-09-08] MEDS: TOPROL XL 37.5 MG PO ×2 (09:21→20:38)
[2024-09-08] MEDS: ELIQUIS 5 MG PO ×2 (09:22→20:23)
[2024-09-08] MEDS: CARDIZEM CD 180 MG PO ×2 (09:22→20:23)
[2024-09-08] MEDS: MIRALAX PO (09:23)
[2024-09-08] MEDS: PRED FORTE 1% EYE DROPS 1 DROP LEFT EYE ×3 (09:23→20:23)
--- NOTE | 2024-09-08 14:45 | W.PN.CD ---
Today's Communication / Plan
-
Cont meds
LALI DCCV Tuesday
Impression / Plan
-
AFIB, RVR, new diagnosis- type and onset unclear:
-Echo: 09/06/24: LVEF 60%. Essentially normal - Mild AI.
-patient had recent eye surgery and is not able to lay flat. Will hold off on LALI/CV at this time. Will check with Will's eye to see when could perform LALI/DCCV if needed.
-[id number] score is 4 for age, female, HTN.
-Eliquis is started at 5 mg BID. Primary team checked with Will's eye provider and okay for OAC.
-Cont PO diltiazem to 180mg bid
-Cont Toprol XL 37.5mg bid
- Discussed with Dr Moreno retina specialist oK for LALI DCCV Tuesday
HTN:
-monitor BP with meds changes
Physical Exam
Vital Signs/Labs
Vital Signs
Temp Pulse Resp BP Pulse Ox
97.6 F 81 18 109/78 100
09/08/24 11:18 09/08/24 12:30 09/08/24 11:18 09/08/24 11:18 09/08/24 11:18
09/07/24 09/08/24 09/09/24
06:59 06:59 06:59
Actual Weight 150 lb 8 oz 150 lb 5.684 oz
09/08/24 03:07
09/08/24 03:07
PT 13.0 Sec (11.4-14.6) 09/05/24 15:03
INR 0.93 09/05/24 15:03
APTT 27.0 Sec (23.4-35.0) 09/05/24 15:03
Magnesium 1.9 mg/dl (1.6-2.3) 09/05/24 15:03
TSH 2.12 uIU/ml (0.47-4.68) 09/05/24 15:03
Physical Exam
Constitutional: No acute distress and Comfortable
EENT: Anicteric
Cardiovascular: Rhythm/rate is irregular
Respiratory: Respiratory effort normal and Lungs clear to auscul.
GI: Soft
Neuro/Psych: AO x 3
Data Reviewed
-
Date of Service: September 08, 2024
EKG: Tracing Personally Visualized and interpreted (af)
Echo: Report Reviewed by me
Labs: Labs Reviewed by me
[2024-09-08] MEDS: ERYTHROMYCIN 0.5% OPHTHALMIC OINTMENT 1 APPLIC LEFT EYE (18:23)
[2024-09-08] MEDS: MELATONIN PO (20:41)
[2024-09-08] MEDS: MIRALAX 17 GRAMS PO (21:41)
[2024-09-09] VITALS (8 sets, daily range): BP systolic 93–127; BP diastolic 62–85; BMI 26.0
--- NOTE | 2024-09-09 00:21 | PTCARENOTE ---
Medications reviewed with pt- plan of care discussed for this shift- VSS- Afib on the monitor- 70s-90s. no complaints of palpations.
--- NOTE | 2024-09-09 06:41 | W.PN.HOSP.TC ---
Today's Communication/Plan
-
Agree with cardioversion plan
c/w rate control
NPO past MN
Assessment / Plan
Assessment / Plan
Physical exam:
General: Comfortable and Conversant
HEENT: Anicteric and Moist mucous membranes
Respiratory: Clear and Non Labored Respirations
Cardiac: S1/S2, Irregular Rhythm and Tachycardia
GI: Soft and Non Tender
Musculoskeletal: No Edema
Neuro: Awake, Alert, Oriented and Nonfocal/grossly intact
Psych: Calm
#Paroxysmal Atrial Fibrillation with Rapid Ventricular Response
She feels palpitation upon exertion
Echo with preserved EF
Started metoprolol along with Cardizem. Monitor for hypotension.
patient had recent eye surgery and is not able to lay flat. will try to do cardioversion
cw Eliquis
TSH wnl
#Recent Left Retina Detachment
-Initial surgery on Jul 17, followed by secondary surgery on Aug 29
- Eye doctor at [facility] agreed with cardioversion & Eliquis treatment.
# Hyponatremia
Mild
#Essential Hypertension
Hold atenolol and amlodipine
Continue Cardizem and metoprolol
DVT proph: Eliquis
Code Status: Full Code
Total time spent to see the patient on the floor, examine the patient, review data and lab results, discuss treatment plan with patient, nursing staff around 55 minutes
Anticipated Discharge: 24 - 48 hours
Subjective/Interval History
-
Date of Service: September 09, 2024
Objective Data
-
Vital Signs:
Vital Signs
Temp Pulse Resp BP Pulse Ox
98.1 F 91 18 111/76 97
09/09/24 03:32 09/09/24 03:30 09/09/24 03:32 09/09/24 02:54 09/09/24 03:32
I&O
02/09/08/24 09/09/24
06:59 06:59 06:59
Intake Total 1140 / 1140 472.4 / 472.4 960 / 960
Balance 1140 / 1140 472.4 / 472.4 960 / 960
[2024-09-09] MEDS: CARDIZEM CD 180 MG PO ×2 (08:51→19:28)
[2024-09-09] MEDS: ELIQUIS 5 MG PO ×2 (08:51→19:30)
[2024-09-09] MEDS: TOPROL XL 37.5 MG PO ×2 (08:51→19:30)
[2024-09-09] MEDS: PRED FORTE 1% EYE DROPS 1 DROP LEFT EYE ×4 (08:53→21:37)
--- NOTE | 2024-09-09 09:47 | W.PN.CD ---
Today's Communication / Plan
-
LALI DCCV tomorrow
Impression / Plan
-
AFIB, RVR, new diagnosis- type and onset unclear:
-Echo: 09/06/24: LVEF 60%. Essentially normal - Mild AI.
-patient had recent eye surgery and is not able to lay flat. Will hold off on LALI/CV at this time. Will check with Will's eye to see when could perform LALI/DCCV if needed.
-[id number] score is 4 for age, female, HTN.
-Eliquis is started at 5 mg BID. Primary team checked with Will's eye provider and okay for OAC.
-Cont PO diltiazem to 180mg bid
-Cont Toprol XL 37.5mg bid, will hold tomorrow AM for LALI DCCV
- Discussed with Dr Moreno retina specialist oK for LALI DCCV Tuesday, and OAC
HTN:
-monitor BP with meds changes
Subjective: Feels well no new complaints
Physical Exam
Vital Signs/Labs
Vital Signs
Temp Pulse Resp BP Pulse Ox
97.5 F 109 20 115/85 99
09/09/24 06:54 09/09/24 08:51 09/09/24 06:54 09/09/24 08:51 09/09/24 06:54
09/08/24 09/09/24 09/10/24
06:59 06:59 06:59
Actual Weight 150 lb 5.684 oz 151 lb 7.321 oz
09/08/24 03:07
09/08/24 03:07
PT 13.0 Sec (11.4-14.6) 09/05/24 15:03
INR 0.93 09/05/24 15:03
APTT 27.0 Sec (23.4-35.0) 09/05/24 15:03
Magnesium 1.9 mg/dl (1.6-2.3) 09/05/24 15:03
TSH 2.12 uIU/ml (0.47-4.68) 09/05/24 15:03
Physical Exam
Constitutional: No acute distress and Comfortable
EENT: Anicteric
Cardiovascular: Rhythm/rate is irregular
Respiratory: Respiratory effort normal
GI: Soft
Neuro/Psych: AO x 3
Data Reviewed
-
Date of Service: September 09, 2024
EKG: Tracing Personally Visualized and interpreted (af)
Echo: Report Reviewed by me
Labs: Labs Reviewed by me
--- NOTE | 2024-09-09 18:05 | PTCARENOTE ---
pt continues to be afib on the monitor, hr in the 90s-100s, vss. pt offers no complaints at this time. pt educated on plan of care and pt verbalized understanding. call kevin within reach.
[2024-09-09] MEDS: ERYTHROMYCIN 0.5% OPHTHALMIC OINTMENT 1 APPLIC LEFT EYE (19:28)
[2024-09-09] MEDS: MIRALAX PO (19:43)
--- NOTE | 2024-09-09 20:17 | PTCARENOTE ---
Received patient at change of shift. Patient A&Ox3. Vitals stable. Discussed NPO @ midnight for LALI/ECHO tomorrow for possible CV. Discussed plan of care for evening. Patient verbalized understanding. Call kevin within reach.
[2024-09-09] MEDS: MELATONIN 5 MG PO (21:37)
[2024-09-10 05:43] VITALS: BP 108/83
[2024-09-10 05:47] VITALS: BMI 26.1
[2024-09-10 06:58] VITALS: BP 123/83
[2024-09-10] MEDS: FLUSH (NSS) 1 FLUSH IV (08:03)
[2024-09-10] MEDS: CARDIZEM CD 180 MG PO (08:03)
[2024-09-10] MEDS: ELIQUIS 5 MG PO (08:03)
[2024-09-10] MEDS: PRED FORTE 1% EYE DROPS 1 DROP LEFT EYE ×2 (08:05→13:37)
--- NOTE | 2024-09-10 08:18 | PTCARENOTE ---
Addendum entered by Aye Marquez RN 09/10/24 09:29:
The patient has no complaints of palpitations or dizziness.
Original Note:
The patient is aaox3, vital signs are stable. Afib is noted on the monitor. She has no complaints of SOB. She states 'I'm feeling much better today.' I educated the patient on what to expect during her upcoming LALI/CV. Afib education and was also
reviewed with her.
[2024-09-10 11:18] VITALS: BP 111/64
--- NOTE | 2024-09-10 11:23 | PTCARENOTE ---
Patient's HR fluctuates between 80-120s depending on activity.
--- NOTE | 2024-09-10 12:25 | ITS.CL.CARDI ---
Specimen Collector - Cardioversion
Cardioversion
Procedure Report:
Date of Procedure:09/10/2024
Procedure: Cardioversion.
Indication: Symptomatic Persistentatrial fibrillation.
Performing Physician: Kavya Aguirre MD
Technique: The patient was brought to the holding area. Signed informed consent was obtained. A time out was called and performed. The patient was sedated by a member of the anesthesia service. Anticoagulation status was reviewed and was
appropriate. R-2 pads were placed anteriorly and posteriorly. LALI was performed and showed no evidence of intracardiac thrombus or spontaneous echo contrast.A 200 J synchronized biphasic shock restored normal sinus rhythm without significant
bradycardia. There were no complications.
Conclusion: Uncomplicated cardioversion from Persistent atrial fibrillation to sinus rhythm.
Recommendation: Routine post cardioversion care. Continue mcfp anticoagulation.
cc: Sheila
--- NOTE | 2024-09-10 12:27 | W.PN.CD ---
Today's Communication / Plan
-
successful rosy/dccv
will decreased metoprolol to 25mg po bid
ok for discharge from cardiac perspective
Impression / Plan
-
AFIB, RVR, new diagnosis- persistent
-Echo: 09/06/24: LVEF 60%. Essentially normal - Mild AI.
-[id number] score is 4 for age, female, HTN.
- Dr Rios discussed with Dr Moreno retina specialist oK for ROSY DCCV Tuesday, and OAC
-S/p ROSY/DCCV 09/10/24
-Eliquis is started at 5 mg BID will continue
-Cont PO diltiazem to 180mg bid
-Cont Toprol XL 37.5mg bid---> will decrease to 25mg BID
HTN:
-monitor BP with meds changes
Subjective: Feels well no new complaints, just anxious over procedure
Physical Exam
Vital Signs/Labs
Vital Signs
Temp Pulse Resp BP Pulse Ox
97.4 F 126 20 111/64 99
09/10/24 11:18 09/10/24 11:18 09/10/24 11:18 09/10/24 11:18 09/10/24 11:18
09/09/24 09/10/24 09/11/24
06:59 06:59 06:59
Actual Weight 68.7 kg 69 kg
09/08/24 03:07
09/08/24 03:07
PT 13.0 Sec (11.4-14.6) 09/05/24 15:03
INR 0.93 09/05/24 15:03
APTT 27.0 Sec (23.4-35.0) 09/05/24 15:03
Magnesium 1.9 mg/dl (1.6-2.3) 09/05/24 15:03
TSH 2.12 uIU/ml (0.47-4.68) 09/05/24 15:03
Physical Exam
Constitutional: No acute distress
Cardiovascular: Pedal edema is absent, JVD pressure is normal, Systolic murmur absent and Rhythm/rate is irregular (examined before dccv)
Respiratory: Respiratory effort normal, Lungs clear to auscul., Wheeze Absent, Crackles Absent and Rhonchi Absent
Neuro/Psych: AO x 3
Data Reviewed
-
Date of Service: September 10, 2024
Medical Decision Making: Review of Case with other Provider (updated Dr Barbour, successful dccv)
[2024-09-10 13:44] VITALS: BP 126/69
--- NOTE | 2024-09-10 13:46 | PTCARENOTE ---
Received the patient from the clinical lab assistant in a wheelchair post CV. The patient ambulated to the bed without difficultly. She has no complaints. NSR with a 1st degree AVB and freq PACs and PVCs is noted on the monitor. HR 63 BP 126/69. is at her
bedside.
--- NOTE | 2024-09-10 13:51 | W.PN.HOSP.TC ---
Addendum entered and electronically signed by Carlito Barbour MD 09/10/24 15:25:
Discussed with patient. Aware of not take amlodipine on discharge
Original Note:
Today's Communication/Plan
-
Monitor vital signs see plan
Successful cardioversion
Discharged on metoprolol, Cardizem, Eliquis
Time of discharge 37 minutes
Assessment / Plan
Assessment / Plan
Physical exam:
General: Comfortable and Conversant
HEENT: Anicteric and Moist mucous membranes
Respiratory: Clear and Non Labored Respirations
Cardiac: S1/S2, regular Rhythm and Tachycardia
GI: Soft and Non Tender
Musculoskeletal: No Edema
Neuro: Awake, Alert, Oriented and Nonfocal/grossly intact
Psych: Calm
#Paroxysmal Atrial Fibrillation with Rapid Ventricular Response
She feels palpitation upon exertion
Echo with preserved EF
Started metoprolol along with Cardizem. Monitor for hypotension.
Status post cardioversion 09/10, successful. Per cardiology decrease metoprolol to 25 mg p.o. twice daily. Patient okay to be discharged home from their standpoint.
cw Eliquis
TSH wnl
#Recent Left Retina Detachment
-Initial surgery on Jul 17, followed by secondary surgery on Aug 29
- Eye doctor at [facility] [place] agreed with cardioversion & Eliquis treatment.
# Hyponatremia
Mild
#Essential Hypertension
Hold atenolol and amlodipine
Continue Cardizem and metoprolol
DVT proph: Eliquis
Code Status: Full Code
Anticipated Discharge: Today
Subjective/Interval History
-
Date of Service: September 10, 2024
Denies pain
Objective Data
-
Vital Signs:
Vital Signs
Temp Pulse Resp BP Pulse Ox
97.4 F 142 20 111/64 99
09/10/24 11:18 09/10/24 11:30 09/10/24 11:18 09/10/24 11:18 09/10/24 11:18
I&O
09/09/24 09/10/24 09/11/24
06:59 06:59 06:59
Intake Total 960 / 960 480 / 480
Balance 960 / 960 480 / 480
--- NOTE | 2024-09-10 13:55 | W.DCSUMMARY ---
Discharge Summary
Discharge Data
Date of Admission: 09/05/24
Date of Discharge: 09/10/24
-
Pending Results: No
Hospital Course
84-year-old female with past medical history of recent left retina detachment status post surgery and [facility], hypertension came to the hospital with new onset of atrial fibrillation with rapid ventricular rate. Patient was initially started on
IV Cardizem however her heart rate did not improve so metoprolol was added. Over time her atrial fibrillation was still uncontrolled so cardiology spoke with [facility] and they were okay with patient getting cardioversion. Patient then underwent
cardioversion on 09/10/2024 which was successful. For anticoagulation patient was started on Eliquis. Since patient was started on Cardizem and metoprolol which was new, her home atenolol and amlodipine was discontinued. Echocardiogram was also
done which showed preserved ejection fraction. Once her symptoms continue to improve, she was then discharged home with instructions to follow-up with all her physicians outpatient.
Discharge Plan
-
Patient Disposition: Home (Routine Discharge)
Discharge Diagnosis/Procedures: New onset atrial fibrillation with rapid ventricular rate
Recent retinal detachment
Hyponatremia
Diet: As tolerated
Activity: As tolerated
Driving Restrictions: As prior to admission
Bathing Restrictions: None
Referrals:
Shruthi Rivera CRNP [Specified Professional Personl] - 10/03/24 11:20 am
Max Dorsey MD [Family Provider] - in less than 1 week
Prescriptions:
New
diltiazem HCl 180 mg Capsule,Extended Release 24hr
180 mg PO BID Qty: 60 0RF
metoprolol succinate 25 mg Tablet Extended Release 24 Hr
25 mg PO BID Qty: 60 0RF
Eliquis 5 mg Tablet
5 mg PO BID Qty: 60 0RF
Continued
acetaminophen [Tylenol Extra Strength] 500 mg Tablet
1,000 mg PO Q6HPRN PRN (Reason: mild pain)
prednisolone acetate 1 % Drops,Suspension
1 drp LEFT EYE .TAPER
Patient Comments:
09/05/24: started 09/04/24, to take 1 drp TID for 1 week, BID for 1 week, then QD for 1 week.
erythromycin 5 mg/gram (0.5 %) Ointment
1 applic LEFT EYE QPM
cholecalciferol (vitamin D3) [Vitamin D3] 125 mcg (5,000 unit) Tablet
125 mcg PO QPM
red yeast rice 600 mg Tablet
600 mg PO QPM
Cbd Gummies
25 mg PO HSPRN PRN (Reason: sleep)
Discontinued
atenolol 25 MG tablet
25 mg PO QPM
aspirin 81 mg Tablet,Chewable
81 mg PO DAILYPRN PRN (Reason: irregular heartbeat)
amlodipine 2.5 mg Tablet
2.5 mg PO QPM
Discharge Orders:
Discharge Patient (As Directed); Ordered 09/10/24
Ordered By: Carlito Barbour
Discharge Date and Time
Discharge Date/Time: 09/10/24 14:39
Print Language: MOHAWK
[2024-09-10 14:11] VITALS: BP 143/65
[2024-09-10 14:12] VITALS: BP 143/65
--- NOTE | 2024-09-10 14:38 | PTCARENOTE ---
Patient discharged home.
== END 2024-09-10 14:39 | disposition home or self-care (01) | DRG 309 ==
LOC: IVU 17:38
PROVIDERS: Internal Medicine Cardiovascular Disease; Physician Assistant Medical; ADMITTING PHYSICIAN Internal Medicine; ATTENDING PHYSICIAN Internal Medicine; CONSULT PHYSICIAN Internal Medicine Cardiovascular Disease; EMERGENCY PHYSICIAN Emergency Medicine; FAMILY PHYSICIAN Family Medicine
PROC: B24BZZ4 Ultrasonography of Heart with Aorta, Transesophageal (ICD-10-PCS; 2024-09-10)
PROC: 5A2204Z Restoration of Cardiac Rhythm, Single (ICD-10-PCS; 2024-09-10)
DX: I48.19 Other persistent atrial fibrillation (principal); E87.1 Hypo-osmolality and hyponatremia; I10 Essential (primary) hypertension; E78.5 Hyperlipidemia, unspecified; Z85.3 Personal history of malignant neoplasm of breast; Z87.891 Personal history of nicotine dependence; Z88.2 Allergy status to sulfonamides; Z82.49 Family history of ischemic heart disease and other diseases of the circulatory system; Z79.82 Long term (current) use of aspirin; Z79.899 Other long term (current) drug therapy
CPT/HCPCS: 80048; 80053; 83735; 84443; 85025; 85027; 85610; 85730; 92960; 93005; 93306; 93312; 93320; 93325; 96374; 99291; J1160

== ENCOUNTER 2024-09-28 14:24 | Emergency (ER) | payer MEDICARE, BC, SELFPAY ==
[2024-09-28 14:39] VITALS: BP 171/81
[2024-09-28 15:22] LABS: % Basophils 0.7 % (0-2); % Immature Granulocytes 0.5 % (0-0.5); % Lymphocytes 18.6 % (20.5-51.1); % Monocytes 8.3 % (1.7-9.3); % Neutrophils 69.9 % (42.2-75.2); Absolute Basophils 0.1 10^3/uL (0-0.2); Absolute Eosinophils 0.2 10^3/uL (0-0.7); Absolute Lymphocytes 1.6 10^3/uL (1.2-3.4); Absolute Monocytes 0.7 10^3/uL (0.1-0.6); Absolute Neutrophils 5.8 10^3/uL (1.4-6.5); Hematocrit 43.2 % (37.0-47.0); Hemoglobin 14.7 g/dL (12.0-16.0); Mean Corpuscular Hgb 30.8 pg (27.0-31.0); Mean Corpuscular Volume 90.6 fL (81.0-99.0); Mean Platelet Volume 10.2 fL (7.4-10.4); Nucleated Red Blood Cells % 0 %; Platelet Count 287 10^3/uL (130-400); Red Blood Cell Count 4.77 10^6/uL (4.20-5.40); Red Cell Dist. Width 13.9 % (11.5-14.5); White Blood Cell Count 8.3 10^3/uL (4.8-10.8)
[2024-09-28 15:38] LABS: ALT (SGPT) 20 U/L (0-35); AST (SGOT) 22 U/L (14-36); Albumin 4.9 g/dl (3.5-5.0); Alkaline Phosphatase 84 U/L (38-126); Blood Urea Nitrogen 20 mg/dl (7-17); Calcium 9.9 mg/dl (8.4-10.2); Carbon Dioxide 27 mmol/L (22-30); Chloride 98 mmol/L (98-107); Glucose 102 mg/dl (70-99); Potassium 4.7 mmol/L (3.5-5.1); Sodium 134 mmol/L (135-145); Total Bilirubin 0.7 mg/dl (0.2-1.3); Total Protein 7.9 g/dl (6.3-8.2); eGFR > 60.00
[2024-09-28 15:58] LABS: Troponin I < 0.012 ng/ml
--- NOTE | 2024-09-28 17:34 | ED.GENMED ---
History of Present Illness
General
Chief Complaint: Heart Rate Problem
Time Seen by Provider: 09/28/24 17:34
History of Present Illness
History of Present Illness:
TIME OF INITIAL ENCOUNTER: 5:30 PM
HPI: Admitted to hospital 09/05/2024 w/ new onset rapid afib. At that time, she recently had retinal detachment surgery and did not have [facility] cardioversion until 09/10/2024 as an inpatient with [facility]; [facility]. Has
been on Eliquis since then. [employer] indicated she was back in AFib this morning at 9:30am. Here, she is rate controlled AFib w/ rates in 80s.
EXAM:
GENERAL: Well appearing in no distress
HEENT: Moist oral mucosa
CARDIOVASCULAR: No murmurs, normal heart rate, irregular rhythm, No chest wall tenderness
PULMONARY: No respiratory distress, breath sounds are clear and equal
ABDOMEN: Soft with no peritoneal signs, no tenderness
NEUROLOGIC: Excellent strength all extremities, no coordination deficits
PSYCHIATRIC: Appropriate mental status, normal insight and judgement
EXTREMITIES: Nontender, no edema, moves all extremities equally
SKIN: No rash, no lesions
NUMBER AND COMPLEXITY OF PROBLEMS ADDRESSED AT THE ENCOUNTER
� Chronic conditions affecting care: A-fib on Eliquis, breast cancer, former smoker
� Acute Exacerbation and/or Progression of Chronic Illness: This is an acute problem
� Differential Diagnosis includes: Recurrence of atrial fibrillation
AMOUNT AND/OR COMPLEXITY OF DATA TO BE REVIEWED AND ANALYZED
� I performed an independent evaluation of and my interpretation is:
EKG: A-fib/flutter rate of 89, left axis deviation
CT:
X-rays:
Laboratory Studies: CBC and chemistries unremarkable, troponin less than 0.012
Other:
� Review of other/old records: I reviewed the discharge summary and cardiology notes from last admission when she was cardioverted by Dr. Aguirre
� Clinical information was obtained by an independent historian: None needed
� Prescriptions/Medications Considered but not given:
� Further testing considered but not performed:
RISK OF COMPLICATIONS AND/OR MORBIDITY OR MORTALITY OF PATIENT MANAGEMENT
� Social determinants of health affecting care: Lives at home
� Discussion with other providers: As patient has several concerns, I notified cardiology, Dr. Sosa.
� Escalation of care including admission/observation vs risk of discharge considered: While in ED, the patient converted back to a sinus rhythm without any intervention.
ANY OTHER UPDATES:
I discussed case with Dr. Sosa who is trying to arrange closer outpatient follow-up. Their office should call her. At his recommendation, I informed patient that she could take an extra metoprolol dose if symptoms recur.
Past History
Past History
ED Past Medical History: Arrthythmia, Cancer (Breast cancer) and HTN
ED Past Surgical History: Other (Right lumpectomy)
Social History
Tobacco: Non-smoker
Alcohol: None
Drug: None
Personal:
Living: with family
Employment: Retired
Phy Exam
Physical Exam
Physical Exam:
See HPI
Course
Orders/Labs/Results
Orders:
Orders
09/28/24 14:25
Electrocardiogram (*1) Urgent
Reason for Study: Tachycardia
EKG- Treatment ONCE
09/28/24 15:08
Complete Blood Count/With Diff Urgent
Comprehensive Metabolic Panel Urgent
Troponin I Urgent
09/28/24 17:50
Electrocardiogram (*1) Urgent
Reason for Study: Palpitations
EKG- Treatment ONCE
Abnormal Lab Results
09/28/24
15:08
Absolute Monos (auto) 0.7 H 10^3/uL
(0.1-0.6)
Lymphocytes % 18.6 L %
(20.5-51.1)
Sodium 134 L mmol/L
(135-145)
BUN 20 H mg/dl
(7-17)
Glucose 102 H mg/dl
(70-99)
09/28/24 15:08
09/28/24 15:08
Vital Signs
Initial and Last Documented VS:
Initial Vital Signs
Temp Pulse Resp BP Pulse Ox
36.6 C 91 16 171/81 98
09/28/24 14:39 09/28/24 14:39 09/28/24 14:39 09/28/24 14:39 09/28/24 14:39
Last Documented Vital Signs
Temp Pulse Resp BP Pulse Ox
36.6 C 87 17 171/81 97
09/28/24 14:39 09/28/24 18:30 09/28/24 18:30 09/28/24 14:39 09/28/24 18:30
*Critical Care Note
Total Time (30-74mins, 75-104mins- exclusive of procedures): Not Applicable
ED Attending Note
-
Portions of this chart may have been created with voice recognition software.� Occasional wrong word or��sound alike� substitutions may have occurred due to the inherent limitations of voice recognition software.
Discharge Plan
Departure
Patient Disposition: Home (Routine Discharge)
Date of Disposition: 09/28/24
Time of Disposition: 18:23
Patient with high blood pressure during this ER visit?: Yes
Discharge Problem:
Atrial fibrillation
Prescriptions:
No Action
acetaminophen [Tylenol Extra Strength] 500 mg Tablet
1,000 mg PO Q6HPRN PRN (Reason: mild pain)
prednisolone acetate 1 % Drops,Suspension
1 drp LEFT EYE .TAPER
Patient Comments:
09/05/24: started 09/04/24, to take 1 drp TID for 1 week, BID for 1 week, then QD for 1 week.
erythromycin 5 mg/gram (0.5 %) Ointment
1 applic LEFT EYE QPM
cholecalciferol (vitamin D3) [Vitamin D3] 125 mcg (5,000 unit) Tablet
125 mcg PO QPM
red yeast rice 600 mg Tablet
600 mg PO QPM
Cbd Gummies
25 mg PO HSPRN PRN (Reason: sleep)
diltiazem HCl 180 mg Capsule,Extended Release 24hr
180 mg PO BID Qty: 60 0RF
metoprolol succinate 25 mg Tablet Extended Release 24 Hr
25 mg PO BID Qty: 60 0RF
Eliquis 5 mg Tablet
5 mg PO BID Qty: 60 0RF
Referrals:
Fco Pichardo MD [Active] - Follow up in 2-3 days
Max Dorsey MD [Family Provider] -
Activity Restrictions/Additional Instructions:
Prior to discharge, your heart rate is back in a normal kind of sinus rhythm. Your initial EKG was atrial fibrillation and then without any intervention went back to sinus rhythm. Your blood pressure has been high. I spoke to Dr. Pichardo's
associate, Dr. Sosa. Somebody from their office will call you next week to try to get you an earlier appointment. If you do not hear from them by 12:30 PM on Tuesday, you can call their office. If your symptoms are minimal and you go back into
atrial fibrillation you do not necessarily need to come to the emergency department however if you are feeling unwell, you should come back to the ER. Dr. Sosa also indicated that if you go back into atrial fibrillation you could take an extra
metoprolol 25 mg in addition to what you would normally take.
Interventions
Interventions:
*Risk Screen - Suicide Last Done: 09/28/24 14:39
*Neglect/Abuse Screening Last Done: 09/28/24 14:39
*Nursing Disposition Last Done: 09/28/24 18:45
ED- Cardiac Assessment Last Done: 09/28/24 17:19
ED- Pulmonary Assessment Last Done: 09/28/24 17:19
Discharge Date and Time
Discharge Date/Time: 09/28/24 19:15
Print Language: GHANAIAN
== END 2024-09-28 19:15 | disposition home or self-care (01) ==
LOC: EMR 14:24
PROVIDERS: Student in an Organized Health Care Education/Training Program; EMERGENCY PHYSICIAN Emergency Medicine; FAMILY PHYSICIAN Family Medicine
DX: I48.91 Unspecified atrial fibrillation (principal); I10 Essential (primary) hypertension; Z79.01 Long term (current) use of anticoagulants
CPT/HCPCS: 99284; 80053; 84484; 85025; 93005

== ENCOUNTER → 2024-10-31 08:47 | Outpatient (REF) | payer MEDICARE, BC, SELFPAY ==
[2024-10-31 11:07] LABS: ALT (SGPT) 20 U/L (0-35); AST (SGOT) 25 U/L (14-36); Albumin 4.2 g/dl (3.5-5.0); Alkaline Phosphatase 81 U/L (38-126); Blood Urea Nitrogen 18 mg/dl (7-17); Calcium 10.1 mg/dl (8.4-10.2); Carbon Dioxide 28 mmol/L (22-30); Chloride 101 mmol/L (98-107); Glucose 89 mg/dl (70-99); HDL Cholesterol 64 mg/dl; LDL Cholesterol, Calculated 135 mg/dl; Potassium 5.3 mmol/L (3.5-5.1); Sodium 138 mmol/L (135-145); Total Bilirubin 0.8 mg/dl (0.2-1.3); Total Cholesterol 222 mg/dl (50-199); Total Protein 7.4 g/dl (6.3-8.2); Triglyceride 119 mg/dl (10-149); Very Low Density Lipoprotein 23 mg/dl (0-30); eGFR > 60.00
[2024-10-31 18:08] LABS: Vitamin D, 25-OH*** 41.9 ng/mL (30-80)
== END ==
LOC: REG 08:47
PROVIDERS: ATTENDING PHYSICIAN Family Medicine
DX: E78.2 Mixed hyperlipidemia (principal); E55.9 Vitamin D deficiency, unspecified
CPT/HCPCS: 36415; 80053; 80061; 82306

== ENCOUNTER → 2024-12-12 14:00 | Outpatient (REF) | payer MEDICARE, BC, SELFPAY ==
[2024-12-13 10:03] LABS: Blood Urea Nitrogen 13 mg/dl (7-17); Calcium 9.7 mg/dl (8.4-10.2); Carbon Dioxide 28 mmol/L (22-30); Chloride 103 mmol/L (98-107); Glucose 82 mg/dl (70-99); Potassium 4.4 mmol/L (3.5-5.1); Sodium 138 mmol/L (135-145); eGFR > 60.00
== END ==
LOC: REG 14:00
PROVIDERS: ATTENDING PHYSICIAN Family Medicine
DX: E87.5 Hyperkalemia (principal)
CPT/HCPCS: 36415; 80048

== ENCOUNTER → 2024-12-24 13:08 | Outpatient (REF) | payer MEDICARE, BC, SELFPAY ==
[2024-12-24 13:38] LABS: % Basophils 0.6 % (0-2); % Immature Granulocytes 0.3 % (0-0.5); % Lymphocytes 19.7 % (20.5-51.1); % Neutrophils 68.4 % (42.2-75.2); Absolute Basophils 0.1 10^3/uL (0-0.2); Absolute Eosinophils 0.2 10^3/uL (0-0.7); Absolute Lymphocytes 1.6 10^3/uL (1.2-3.4); Absolute Monocytes 0.7 10^3/uL (0.1-0.6); Absolute Neutrophils 5.5 10^3/uL (1.4-6.5); Hematocrit 39.9 % (37.0-47.0); Hemoglobin 13.5 g/dL (12.0-16.0); Mean Corp Hgb Conc. 33.8 g/dL (33.0-37.0); Mean Corpuscular Hgb 31.3 pg (27.0-31.0); Mean Corpuscular Volume 92.4 fL (81.0-99.0); Mean Platelet Volume 10.5 fL (7.4-10.4); Nucleated Red Blood Cells % 0 %; Platelet Count 270 10^3/uL (130-400); Red Blood Cell Count 4.32 10^6/uL (4.20-5.40); Red Cell Dist. Width 13.2 % (11.5-14.5)
[2024-12-24 14:14] LABS: ALT (SGPT) 21 U/L (0-35); AST (SGOT) 25 U/L (14-36); Albumin 4.4 g/dl (3.5-5.0); Alkaline Phosphatase 70 U/L (38-126); Blood Urea Nitrogen 15 mg/dl (7-17); Calcium 9.7 mg/dl (8.4-10.2); Carbon Dioxide 26 mmol/L (22-30); Chloride 101 mmol/L (98-107); Glucose 88 mg/dl (70-99); Potassium 4.5 mmol/L (3.5-5.1); Sodium 134 mmol/L (135-145); Total Bilirubin 0.5 mg/dl (0.2-1.3); Total Protein 7.5 g/dl (6.3-8.2); eGFR > 60.00
== END ==
LOC: SDSPAT 13:08
PROVIDERS: ATTENDING PHYSICIAN Internal Medicine Cardiovascular Disease; FAMILY PHYSICIAN Family Medicine; OTHER PHYSICIAN Internal Medicine
DX: I48.0 Paroxysmal atrial fibrillation (principal)
CPT/HCPCS: 36415; 80053; 85025; 86850; 86900; 86901

== ENCOUNTER 2025-01-01 08:00 | Day surgery (SDC) | payer MEDICARE, BC, SELFPAY ==
[2024-12-24 13:17] VITALS: BMI 27.6
[2025-01-01] VITALS (15 sets, daily range): BP systolic 101–143; BP diastolic 53–73
--- NOTE | 2025-01-01 12:43 | ITS.CL.ABL ---
[facility] [facility] - Ablation
Ablation
Procedure Report:
AFIB ablation:
Ms. Falcon is a very pleasant 84 yr old woman with h/o paroxysmal atrial fibrillation / flutters, atrial tachycardia, PACs /PVCs and NSVT presented today to the EP lab for atrial fibrillation / flutter /SVT/PVC ablation.
Date of Procedure:
01/01/2025
Indications:
Recurrent symptomatic atrial fibrillation / atrial flutter / SVT
Pre-Operative Diagnosis:
Paroxysmal atrial fibrillation /Multiple Atrial flutter / Atrial tachycardia
Post-Operative Diagnosis:
Paroxysmal atrial fibrillation /Multiple Atrial flutter / Atrial tachycardia
Procedure Performed:
Atrial fibrillation ablation with pulmonary vein isolation
Left atrial flutter � roof dependent ablation
Posterior wall isolation
Anterior wall atrial tachycardia ablation
Anterior wall mitral flutter ablation
Typical atrial flutter with Cavo tricuspid isthmus (CTI) ablation
Performing Physician:
Sury Ha MD
Assistants:
EP staff
Anesthesia:
See anesthesia records
Detailed Description of the Procedure:
Written informed consent was obtained from the patient after a full explanation of the risks and benefits of the procedure including the risks of sedation and anesthesia.
The patient was brought to the electrophysiology laboratory in stable condition in fasting state. Continuous electrocardiographic and hemodynamic monitoring was initiated.
The initial rhythm was sinus bradycardia.
Time out:
The procedure site was meticulously prepared with surgical scrub and allowed to dry with no pooling. Sterile draping was applied to cover the procedure site. The image intensifier was draped with sterile bag and positioned over the patient.
Prior to the start of the procedure a surgical pause was performed with in agreement from anesthesia, EP staff with double identifier and explanation of the procedure, plan and site of the procedure stated with allergies and medications and
pertinent labs reviewed.
After infusion of local anesthetic, vascular access was obtained under ultrasound guidance and sheaths were placed over guide wire as detailed below. The images were stored in patient chart.
Sheaths:
��������������� Agilis sheath in right femoral vein upgraded from 8Fr in right femoral vein
��������������� 9Fr in right femoral vein
��������������� 7Fr in right femoral vein
Catheters:
��������������� The Affera Sphere 9 catheter -bidirectional D/F� - at locations of HRA, RV, LA and LV.
��������������� ICE catheter - at locations of RA, SVC, and RV.
��������������� Bard decapolar catheter � In RA and CS
���������������
A 7000 units of heparin was given
Intracardiac ECHO:
An 8-Swedish AcuNav intracardiac ECHO (ICE) probe was advanced through the 9-Swedish sheath in the right femoral vein into the right atrium under fluoroscopic and ICE ultrasound image guidance and a baseline ECHO study was performed. The left atrial
size was severely dilated. There was trace tricuspid regurgitation. There was mild mitral regurgitation. There was mildly reduced left ventricular systolic function. There is trace pericardial effusion. All the four veins were identified and has
good flow identified. No definite clot seen.�
During the procedure, ICE was used for monitoring of complications, guidance of trans-septal puncture, monitor the catheter position and tracking ablation lesions. No change in the pericardial space noted throughout the procedure.
Trans-septal Puncture:
Heparin was initiated and infused to maintain appropriate ACT. A J-tipped guidewire was advanced through into the superior vena cava under fluoroscopic and ICE guidance. The Agilis sheath was advanced into the superior vena cava over a guidewire. A
BRK needle with stylet was advanced inside the Agilis sheath. The apparatus was withdrawn until it was in contact with the fossa ovalis. The position was adjusted based on fluoroscopy and ultrasound images from ICE. Under fluoroscopic, hemodynamic
and ICE ultrasound guidance, left atrium was cannulated by advancing the needle. Once atrial septum was cannulated, the needle was pulled back and the guide wire was advanced through the needle into the left atrium. The guide wire was advanced into
the left superior pulmonary vein. Both the sheath and the dilator was advanced into the left atrium. The dilator with the needle was withdrawn. Blood was aspirated from the Agilis sheath and arterial blood confirmed. The sheath was flushed. Saline
injection noted into the left atrium on ICE. The waveform of the LA pressure was recorded. The mapping catheter was advanced in the Agilis sheath into the left pulmonary vein.
3D Electroanatomic Mapping:
Using the Sphere 9 Affera catheter advanced through Agilis sheath into the left atrium, an electroanatomic map (EAM) of the left atrium was created using [employer] mapping system with Disqus software. The map was used for localization of catheter
position and tacking of ablation lesions.
The EAM of the left atrium showed a total of 4 PVs with two left and two right sided pulmonary veins. There was extensive scarring noted in the LA. The posterior wall had scattered signals. The LA was dilated. �
Following the EAM, preparation were made for ablation.
Ablation:
Ablation # 1: Atrial fibrillation ablation - Pulmonary vein Isolation:
Pulsed field ablation was performed using an open irrigation, bidirectional, contact sensing, dual energy ablation catheter (Affera sphere -9) by completing the circumferential lesions around the left and right pulmonary veins achieving pulmonary
vein isolation.
Ablation # 2: Roof line Formation:
There was a clear channel of electrical activity left in the posterior wall with multiple CFAE and AF areas on the roof and ablation in that area increased the risk of atrial flutter and decision was made to create a roof line to block a slow
conduction. A set of pulsed field ablations were placed on the roof line connecting the left superior pulmonary vein ablation lesions to the right superior pulmonary vein lesions rings.
Ablation # 3: Posterior wall isolation with the Box lesions set Formation:
There was a significant fractionation seen in the posterior wall and LA AF foci along with CFAE made it clear as the posterior wall is critical in maintaining the atrial fibrillation and the decision was made to isolate the posterior wall by
creating a �Box� lesions.
Substrate modification:
In the posterior wall, where the CFAE signals were noted were marked and the locations of the ganglion plexi were noted and a Z line connecting these points was created and connected it to LSPV and RIPV through the posterior wall using pulsed field
ablation.
Confirmation of the PVI and bidirectional block:
Following achievement of entrance block at the pulmonary veins, pacing from the Sphere 9 affera catheter in each of the four veins at 10 milliamps for 4 milliseconds showed entrance and exit block.
The LA was mapped with The [employer] mapping system with Prism-1 software in sinus rhythm confirming the line of block at the ablation lesions lines.
All PVI were rechecked at the end of the case. Entrance and exit block were demonstrated.
Ablation # 4: Atrial tachycardia
There was focal atrial tachycardia was noted coming from the septal wall of the atria anteror inferior to the RIPV. The location was close to the AV node. The earliest section was noted and there was scar on the posterior arm of the AT coming from
the hetergenous zone. The scar on the anterior wall was the perfect set up for neil mitral flutter as well.
Decision was made to first ablate the septal signals of the AT. Pulsed field ablation was applied and signals dissipated.
Ablation # 5: Anterior wall line for mitral flutter ablation
The anterior scar was ablated and connected to the LSPV and mitral annulus to remove the slow substrate for neil mitral ablation.
Then the attention was diverted to typical atrial flutter.
Electroanatomic mapping of the right atrium:
Using the Sphere 9 Affera catheter advanced through Agilis sheath into the right atrium, an electroanatomic map (EAM) of the right atrium was created using the [employer] mapping system with Disqus software mapping system.
There was borderline long HV conduction noted at baseline at 50 ms.
Ablation # 6: Typical Atrial Flutter Ablation:
The concentric flutter earlier could be related to CTI flutter ablation.
The CTI ablation was done using radiofrequency with Affera sphere -9 ablation, open irrigation, force-sensing bidirectional ablation catheter in the cavotricuspid isthmus from the tricuspid annulus to the IVC ridge. �
Once the ablation catheter reach near the IVC, the ablation energy was changed to pulsefield.
��������������� -Bidirectional block was confirmed across the CTI line with differential pacing.
��������������� -Double potentials were spaced greater than 98 msec apart.
��������������� -The conduction time across the CTI line from proximal CS pacing was 145 msec.
��������������� -EAM of the right atrium was obtained with coronary sinus pacing and showed a line of block at the CTI.
��������������� -The time interval just lateral to the ablation lesions was 188 msec and the lateral wall was 112 msec
��������������� - All these maneuvers confirmed the block at the CTI line.
- Post ablation HV interval was unchanged at 54msec
�
Procedure End
ICE study was done again that showed no epicardial accumulation. No complications noted.
Following the completion of the EP study, catheters were removed. Protamine 40 mg was given at the end of the procedure and ACT was checked repeatedly. The sheaths were removed and hemostasis achieved with Figure of 8 suture and manual compression.
Left atrial Pressure:
Pre-Procedure: Mean LA pressure was 6mmHg
Post-Procedure: Mean LA pressure was 13mmHg
Post-Procedure: Mean RA pressure was 5mmHg
Fluoro Time:
1.3 min
Estimated Blood loss:
<10 cc
Specimens Removed:
None.
Implants / Devices:
None
Urine output:
None
Packs / Drains/ Tubes:
None
Instrument / Sponge Count Correct:
Yes
Complications of the Procedure:
None
Condition of Patient at Time of Transfer:
Hemodynamically stable with no neurological or vascular compromise.
Summary:
Successful atrial fibrillation ablation with pulmonary vein isolation, roof flutter ablation, posterior wall isolation, focal AT ablation, Mitral flutter anterior wall ablation, Typical CTI flutter ablation. �
[2025-01-01 13:01] LABS: ACT-LR - POC > 397 Seconds (116-155)
[2025-01-01 13:01] LABS: ACT-LR - POC > 397 Seconds (116-155)
[2025-01-01 13:01] LABS: ACT-LR - POC > 397 Seconds (116-155)
--- NOTE | 2025-01-01 16:48 | W.PN.UPDATE ---
Update Note
Progress Note Update
Pt seen post PFA. Right groin without ht/bleeding, oob ambulating, urinating without difficulty. Post EKG NSR w/1st deg AVB 70s, no acute changes. Resume Eliquis tonight at usual time. Will decrease diltiazem to 180mg daily, continue metoprolol xl
at 25mg BID. Followup at [facility] as scheduled. Home later today if groin site/tele remain stable.
== END 2025-01-01 17:15 | disposition home or self-care (01) ==
LOC: CATH 08:00
PROVIDERS: ATTENDING PHYSICIAN Internal Medicine Cardiovascular Disease; FAMILY PHYSICIAN Family Medicine; OTHER PHYSICIAN Internal Medicine
DX: I48.0 Paroxysmal atrial fibrillation (principal); I48.92 Unspecified atrial flutter; I47.19 Other supraventricular tachycardia; Z79.01 Long term (current) use of anticoagulants; I10 Essential (primary) hypertension; I34.0 Nonrheumatic mitral (valve) insufficiency; Z79.899 Other long term (current) drug therapy
CPT/HCPCS: C1769; C1894; C1730; C1766; C1892; C1759; C1733; 85347; 86900; 86901; 93005; 93655; 93656; 93657

== ENCOUNTER 2025-01-04 05:45 | Emergency (ER) | payer MEDICARE, BC, SELFPAY ==
[2025-01-04] VITALS (21 sets, daily range): BP systolic 107–152; BP diastolic 65–100
--- NOTE | 2025-01-04 06:09 | ED.GENMED ---
History of Present Illness
General
Chief Complaint: Weakness
Source: patient
Exam Limitations: none
Time Seen by Provider: 01/04/25 06:08
Nursing documentation reviewed up to this point in time: agreed with
History of Present Illness
History of Present Illness:
Note:
CHIEF COMPLAINT(S)
Generalized weakness and lack of appetite.
HISTORY OF PRESENT ILLNESS
The patient is an 84-year-old female with a history of atrial fibrillation who presents with generalized weakness and decreased appetite. She underwent a cardiac ablation procedure on Tuesday and was reportedly feeling well post-procedure. She
engaged in normal activities, including a short walk of approximately half an hour the day after the procedure. However, she began experiencing generalized weakness and lack of energy around 3:00 PM the day following the procedure. By dinnertime,
she had no appetite and continued to feel weak through the evening and into the following morning. She spent the night resting on the couch. The patient notes that she has not eaten much except fruit the night before, and she reports no bowel
movement in two days. She denies having any chest pain or difficulty breathing. A mild pain in her back and right shoulder is noted, but there is no history of back or shoulder surgery. She continues taking apixaban as prescribed and reports a
reduction in diltiazem dosage from twice to once daily following her procedure.
ADDITIONAL HISTORY OBTAINED FROM SOURCES OTHER THAN THE PATIENT
According to the spouse, no recent changes other than those following the recent cardiac ablation procedure.
REVIEW OF SYSTEMS
- Constitutional: Generalized weakness, decreased appetite.
- Cardiovascular: No chest pain noted.
- Respiratory: No difficulty breathing.
- Gastrointestinal: Reports no bowel movement in two days.
- Musculoskeletal: Mild back pain, right shoulder discomfort.
- Neurological: No neurological deficits reported.
PHYSICAL EXAM
General: no apparent distress, not acutely ill
Neck: supple. no meningeal signs. normal posterior pharynx
Heart: s1/s2 tachycardia, no murmur. equal radial
pulses.
HEENT: Pupils equal round reactive to light, EOMI
Lungs: no acute respiratory distress. clear bilaterally
Abdomen: normal bowel sounds. not tender. no CVAT
Neuro: alert and oriented. no focal neurological deficits cranial nerves II through XII intact
Skin: no rash
Psychiatric: well kept. interactive and cooperative
Extremities: no edema. no calf tenderness. negative homans. good distal pulses
- Vital Signs: Afebrile, nursing notes reviewed.
- Head: Pupils equal, round, reactive to light.
- Neurological: Cranial nerves II�XII intact, no neurological deficits observed.
MEDICATIONS
- Apixaban continues as prescribed.
- Diltiazem reduced from twice daily to once daily following the recent cardiac procedure.
PLAN
Plan to perform blood tests and a chest X-ray to further evaluate her condition.
DIFFERENTIAL DIAGNOSIS
The Differential Diagnosis includes, in no particular order and is not limited to:
- Post-procedural fatigue
- Electrolyte imbalance
- Anemia
- Medication side effects
- Cardiac ischemia
- Heart failure exacerbation
- Dehydration
- Infection
- Neurological disorder
- Thyroid dysfunction
CARE-UPDATE
01/04/25 - 11:18
Patient demonstrated stable vital signs post-cardioversion with no immediate complications. Dr. Calixto recommends continuing current anticoagulation therapy and monitoring electrolytes closely. Patient advised to report any palpitations or dizziness
before follow-up appointment.
Disposition:
DISPOSITION
Discharge home.
DIAGNOSIS
Atrial flutter w/ rapid ventricular response
PLAN
Follow-up with cardiology.
MEDICAL DECISION MAKING
1. Number & Complexity of Problems: Chronic conditions affecting care include history of atrial fibrillation.
2. Risk: Consideration of admission/observation was made due to complexity/risk. However, outpatient management is appropriate based on reassuring work-up, stable vitals, symptom control, and follow-up reliability.
Past History
Past History
ED Past Medical History: Arrthythmia, Cancer (Breast cancer) and HTN
ED Past Surgical History: Other (Right lumpectomy)
Social History
Tobacco: Non-smoker
Alcohol: None
Drug: None
Personal:
Living: with family
Employment: Retired
Phy Exam
Physical Exam
Physical Exam:
.
Course
Orders/Labs/Results
Orders:
Orders
01/04/25 05:54
Electrocardiogram (*1) Urgent
Reason for Study: Other
Other Reason for Exam: Respiratory Distress
Cardiac Monitoring- Treatment ONCE
EKG- Treatment ONCE
CR Chest - 2 Views Urgent
Comment:
Reason For Exam: respiratory distress
O2 Therapy [RESP] Urgent
Titrate/Wean O2 to maintain O2 sat greater than (%): 93
Special Instructions: TO MAINTAIN CONTINUOUS O2 SATS >/= 93%
Pulse Ox/cont/shift [RESP] Urgent
Quantity: 1
Special Instructions: continuous pulse ox
01/04/25 06:05
Complete Blood Count/With Diff Urgent
Comprehensive Metabolic Panel Urgent
NT-proBNP Urgent
Troponin I Urgent
01/04/25 07:09
Echo Follow up Study W Dop Urgent
Reason for Study: afib
Comment: full study done 09/11
01/04/25 10:04
Troponin I Routine
01/04/25 10:22
Propofol [Diprivan] 60 mg IV NOW STA
01/04/25 10:23
ASA Classification Routine
Abnormal Lab Results
01/04/25 01/04/25
06:05 10:04
RBC 3.87 L 10^6/uL
(4.20-5.40)
Hct 35.4 L %
(37.0-47.0)
MCH 31.5 H pg
(27.0-31.0)
MPV 10.5 H fL
(7.4-10.4)
Absolute Monos (auto) 1.0 H 10^3/uL
(0.1-0.6)
Monocytes % 11.0 H %
(1.7-9.3)
AST 43 H U/L
(14-36)
Troponin I 3.450 H* ng/ml 2.170 H* D ng/ml
01/04/25 06:05
01/04/25 06:05
Vital Signs
Initial and Last Documented VS:
Initial Vital Signs
Temp Pulse Resp BP Pulse Ox
97.7 F 107 20 152/100 97
01/04/25 05:49 01/04/25 05:49 01/04/25 05:49 01/04/25 05:49 01/04/25 05:49
Last Documented Vital Signs
Temp Pulse Resp BP Pulse Ox
97.7 F 81 14 120/71 97
01/04/25 05:49 01/04/25 11:10 01/04/25 11:10 01/04/25 11:10 01/04/25 06:13
Procedures
Moderate Sedation
ASA Risk Score: Class II
Chart and allergies reviewed: Yes
Consent for anesthesia obtained: Yes
Time out completed (validating right patient & procedure): Yes
Moderate Sedation Start Time(when first medication is given): :05
History of difficult intubation: No
Airway free of obstruction: Yes
Patient has a gag reflex: Yes
Patient is able to open mouth: Yes
Patient has no dentures: Yes
Patient has no loose teeth: Yes
Medication administered by Provider during Moderate Sedation: IV Propofol (mg)
Total dose administered: 60
Time drug administered: :05
Moderate Sedation Procedure End Time: 11:15
Cardioversion
Indication:: Afib
Performed by:: Guille
Synchronized?: Yes
Energy Used: 150 joules
Number of attempts: 1
Successful?: Yes
ASA Risk Score: Class II
Any reaction or bad outcome to prior sedation/anesthesia?: No history of a reaction
Sedation level to be attained: moderate
Chart and allergies reviewed: Yes
Patient reassessed prior to sedation: Yes
Time out completed at (validating right patient & procedure): 11:03
History of difficult intubation: No
Airway free of obstruction: Yes
Patient has a gag reflex: Yes
Patient is able to open mouth: Yes
Patient has no dentures: Yes
Patient has no loose teeth: Yes
Medication administered by Provider during Moderate Sedation: IV Propofol (mg)
Total dose administered: 60
Time drug administered: 11:05
Start Time: 11:05
Stop Time: 11:15
*Pulse Oximetry
SaO2: 97
Oxygen Mode of Delivery: Room air
Patient hypoxic: no
*EKG
Interpreted by ED Provider?: Yes
EKG Intrepretation Date: 01/04/25
EKG Intrepretation Time: 06:00
Interpretation: abnormal
Comparison EKG: no comparison EKG present
Heart Rate: 106
Rate: tachycardiac
Rhythm: sinus tachycardia
[place]: normal axis
Interval: normal interval
QRS Pattern: normal QRS
Ischemia: no ischemia
*Critical Care Note
Total Time (30-74mins, 75-104mins- exclusive of procedures): Not Applicable
ED Attending Note
-
Portions of this chart may have been created with voice recognition software.� Occasional wrong word or��sound alike� substitutions may have occurred due to the inherent limitations of voice recognition software.
Discharge Plan
Departure
Patient Disposition: Home (Routine Discharge)
Date of Disposition: 01/04/25
Time of Disposition: 11:18
Patient with high blood pressure during this ER visit?: Yes
Condition: Good
Discharge Problem:
Atrial flutter with rapid ventricular response
Instructions: Atrial flutter, MODERATE SEDATION ADULT, BLOOD PRESSURE
Prescriptions:
No Action
acetaminophen [Tylenol Extra Strength] 500 mg Tablet
1,000 mg PO Q6HPRN PRN (Reason: mild pain)
erythromycin 5 mg/gram (0.5 %) Ointment
1 applic LEFT EYE DAILY
cholecalciferol (vitamin D3) [Vitamin D3] 125 mcg (5,000 unit) Tablet
125 mcg PO QPM
metoprolol succinate 25 mg Tablet Extended Release 24 Hr
25 mg PO BID Qty: 60 0RF
Eliquis 5 mg Tablet
5 mg PO BID Qty: 60 0RF
rosuvastatin 5 mg Tablet
5 mg PO DAILY
ascorbic acid (vitamin C) 1,000 mg Capsule
1,000 mg PO QPM
diltiazem HCl 180 mg Capsule,Extended Release 24hr
180 mg PO DAILY Qty: 60 0RF
Referrals:
Sury Ha MD [Active, Cardiology] - Call in 1-3 days for appt
Max Dorsey MD [Family Provider, Family Practice]
Interventions
Interventions:
*Risk Screen - Suicide Last Done: 01/04/25 05:49
*General Assessment Last Done: 01/04/25 05:49
*Neglect/Abuse Screening Last Done: 01/04/25 05:49
*ED- Fall Risk Assessment Last Done: 01/04/25 05:49
*ED COVID-19 Vaccine History Last Done: 01/04/25 05:49
ED- Cardiac Assessment Last Done: 01/04/25 06:10
ED- Neurological Assessment Last Done: 01/04/25 06:10
ED- Pulmonary Assessment Last Done: 01/04/25 06:10
Discharge Date and Time
Print Language: NIGERIEN
[2025-01-04 06:30] LABS: % Basophils 0.5 % (0-2); % Eosinophils 2.1 % (0-6); % Immature Granulocytes 0.3 % (0-0.5); % Lymphocytes 27.5 % (20.5-51.1); % Neutrophils 58.6 % (42.2-75.2); Absolute Eosinophils 0.2 10^3/uL (0-0.7); Absolute Lymphocytes 2.4 10^3/uL (1.2-3.4); Absolute Neutrophils 5.1 10^3/uL (1.4-6.5); Hematocrit 35.4 % (37.0-47.0); Hemoglobin 12.2 g/dL (12.0-16.0); Mean Corp Hgb Conc. 34.5 g/dL (33.0-37.0); Mean Corpuscular Hgb 31.5 pg (27.0-31.0); Mean Corpuscular Volume 91.5 fL (81.0-99.0); Mean Platelet Volume 10.5 fL (7.4-10.4); Nucleated Red Blood Cells % 0 %; Platelet Count 246 10^3/uL (130-400); Red Blood Cell Count 3.87 10^6/uL (4.20-5.40); Red Cell Dist. Width 13.5 % (11.5-14.5); White Blood Cell Count 8.7 10^3/uL (4.8-10.8)
[2025-01-04 06:34] LABS: ALT (SGPT) 27 U/L (0-35); AST (SGOT) 43 U/L (14-36); Albumin 4.3 g/dl (3.5-5.0); Alkaline Phosphatase 59 U/L (38-126); Blood Urea Nitrogen 11 mg/dl (7-17); Calcium 9.6 mg/dl (8.4-10.2); Carbon Dioxide 29 mmol/L (22-30); Chloride 102 mmol/L (98-107); Glucose 94 mg/dl (70-99); Potassium 4.3 mmol/L (3.5-5.1); Sodium 136 mmol/L (135-145); Total Bilirubin 0.9 mg/dl (0.2-1.3); Total Protein 7.4 g/dl (6.3-8.2); eGFR > 60.00
[2025-01-04 06:53] LABS: NT-proBNP 3500 pg/ml
--- NOTE | 2025-01-04 10:42 | CON.CAR ---
Addendum entered and electronically signed by Sury Ha MD 01/04/25 11:17:
Patient is seen and evaluated personally. I discussed findings and plan of care with nurse fernandoitioner. I agree with the note, plan of care and documentation as noted below.
Briefly, 84-year-old woman with history of paroxysmal atrial fibrillation and multiple atrial flutters, who has undergone A-fib and flutter ablation on 01/01/2025. Patient presented today in the ER with atypical flutter with 2: 1 AV conduction.
We will proceed with DC cardioversion in the ER today. With the recurrence of atrial flutter, we will plan for taking it back to the lab and fixing her flutter early next week.
Echo was done and was reviewed. Echo is unchanged without showing any complications from the procedure. Troponin leak is expected after the ablation and is of little value for this diagnosis.
Plan for cardioversion and if all goes well, can be discharged home.
Original Note:
Consultation
Consultation Request
Date/Time Consultation Requested: 01/04/25 9:30 AM
Date/Time Consultation Performed: 01/04/25 10:15 AM
Requesting Provider: Dr. Han
Performing Provider: BIB Santiago for Dr. Ha
Reason for Consultation: Weakness status post ablation 01/01/2025
Medical History
-
Chief Complaint: Weakness/lightheadedness
History of Present Illness:
Mrs. Falcon is an 84-year-old female with paroxysmal atrial fibrillation on Eliquis, PACs, PVCs/NSVT, hypertension, hypercholesterolemia and moderate mitral regurgitation, who underwent PVI, left atrial flutter roof dependent ablation, posterior
wall isolation, anterior wall atrial tachycardia ablation, anterior wall mitral flutter ablation and typical atrial flutter with CTI ablation on 01/01/2025. She was discharged home the same day on continued Eliquis and reduced diltiazem dose to 180
mg once daily (instead of twice daily). She reports feeling well and taking a leisurely walk in the morning on 01/03/2025 and then in the evening she felt woozy and noted her heart rate was elevated at 105 bpm. She woke up today and still felt
woozy with an elevated heart rate and decided to come to the ER. Her EKG in the ER shows atrial flutter with 2-1 block 106 bpm, atrial flutter is now seen as compared to EKG from 01/01/2025. She reports compliance with her Eliquis without missed
doses and denies abnormal bleeding.
Past Medical History
Past Medical History: Other (As above)
Past Surgical History: Other (As above)
Social History
Tobacco: Former Smoker
Personal:
Living: With Family
Employment: Retired
Family History
Family History: Reviewed & Not Pertinent
Allergies / Home Medications
Allergy/AdvReac Type Severity Reaction Status Date / Time
nitrofurantoin (From Allergy Unknown Unknown Verified 01/04/25 05:49
Macrobid)
ramipril Allergy Unknown Pharmacy Verified 01/04/25 05:49
to Review
Sulfa (Sulfonamide Allergy Anaphylaxis Verified 01/04/25 05:49
Antibiotics)
�Medication �Instructions �Recorded �Confirmed �Type
acetaminophen 500 mg tablet 1,000 mg PO Q6HPRN PRN mild pain 09/05/24 01/01/25 History
(Tylenol Extra Strength)
cholecalciferol (vitamin D3) 125 125 mcg PO QPM 09/05/24 01/01/25 History
mcg (5,000 unit) tablet (Vitamin
D3)
erythromycin 5 mg/gram (0.5 %) eye 1 applic LEFT EYE DAILY 09/05/24 01/01/25 History
ointment
apixaban 5 mg tablet (Eliquis) 5 mg PO BID #60 tabs 09/10/24 01/01/25 Rx
metoprolol succinate 25 mg 25 mg PO BID #60 tabs 09/10/24 01/01/25 Rx
tablet,extended release 24 hr
ascorbic acid (vitamin C) 1,000 mg 1,000 mg PO QPM 01/01/25 01/01/25 History
capsule
diltiazem HCl 180 mg 180 mg PO DAILY #60 caps 01/01/25 01/01/25 Rx
capsule,extended release 24 hr
rosuvastatin 5 mg tablet 5 mg PO DAILY 01/01/25 01/01/25 History
Review of Systems
-
History Source: Patient
All other systems: Negative unless noted
Physical Exam
Vital Signs
Temp Pulse Resp BP Pulse Ox
97.7 F 105 9 135/84 97
01/04/25 05:49 01/04/25 06:30 01/04/25 06:15 01/04/25 06:07 01/04/25 06:13
Lab Results
01/04/25 06:05
01/04/25 06:05
Troponin I 3.450 ng/ml H* 01/04/25 06:05
Irw-M-Autztiabegr Pept 3500 pg/ml 01/04/25 06:05
Physical Exam
General: Well Developed, Well Nourished and No Apparent Distress
HEENT: Normocephalic, Anicteric and Moist Mucous Membranes
Respiratory: Clear and Non Labored Respirations
Cardiac: S1/S2 and Regular Rhythm (Rapid rates up to 110s)
Breast: Deferred by me
GI: Soft, Non Tender, Non Distended and Normal Bowel Sounds
Rectal: Deferred by Provider
Genito-urinary: No Costovertebral Tender
Musculoskeletal: No Clubbing, No Cyanosis and No Edema
Skin: Warm, Dry and Other (Right groin site intact with intact dressing, no hematoma, no bruit.)
Neuro: AO x 3
Psych: Calm
Impression / Plan
-
Atrial flutter - recurrent.
- S/p typical atrial flutter with CTI ablation, anterior wall mitral flutter ablation, anterior wall atrial tachycardia ablation with left atrial flutter roof dependent ablation on 01/01/25.
- Evaluated by Dr. Ha in ER who recommends repeat a flutter ablation on 01/07/2025, patient is agreeable and will be set up as an outpatient.
- Will continue diltiazem 180 mg daily and Eliquis 5 mg twice daily. She verbalized understanding of medication instructions.
- Echo 01/04/25 normal biventricular size and function without regional wall motion abnormality, EF 58%, mild/moderate aortic regurgitation, mild mitral regurgitation, trace tricuspid regurgitation.
Non-acute myocardial injury - initial troponin 3.450.
- Due to ablation procedure 01/01/2025.
- Check second troponin now.
- Echo results as above.
A-fib - paroxysmal.
- Status post PVI 01/01/2025.
- Continue Eliquis and diltiazem as above.
Hypertension - stable on medical therapy, continue.
Hyperlipidemia - stable on rosuvastatin, continue.
Data Reviewed
-
EKG: Tracing Personally Visualized and interpreted (atrial flutter with 2-1 block 106 bpm)
Medical Tests (Nuc Med, Echo etc): Report Reviewed by me (Echo 01/04/25: Normal biventricular size and function, EF 58%, normal pericardium without effusion, mild/moderate AR, mild MR, trace TR.)
Labs: Labs Reviewed by me
== END 2025-01-04 12:47 | disposition home or self-care (01) ==
LOC: EMR 05:45
PROVIDERS: Nurse Practitioner; Student in an Organized Health Care Education/Training Program; EMERGENCY PHYSICIAN Emergency Medicine; FAMILY PHYSICIAN Family Medicine
DX: I48.92 Unspecified atrial flutter (principal); E78.00 Pure hypercholesterolemia, unspecified; I08.0 Rheumatic disorders of both mitral and aortic valves; I10 Essential (primary) hypertension; Z79.01 Long term (current) use of anticoagulants; Z85.3 Personal history of malignant neoplasm of breast; Z87.891 Personal history of nicotine dependence; Z79.899 Other long term (current) drug therapy
CPT/HCPCS: 99284; 92960; 93308; 71046; 80053; 83880; 84484; 85025; 93005; 93321; 93325

== ENCOUNTER 2025-01-07 07:52 | Day surgery (SDC) | payer MEDICARE, BC, SELFPAY ==
[2025-01-07] VITALS (17 sets, daily range): BP systolic 103–136; BP diastolic 59–81; BMI 27.7
[2025-01-07 11:28] LABS: ACT-LR - POC 227 Seconds (116-155)
--- NOTE | 2025-01-07 12:03 | ITS.CL.ABL ---
Front End Software Developer - Ablation
Ablation
Procedure Report:
Supra-ventricular tachycardia ablation:
Ms. Falcon is a very pleasant 84 yr old woman with h/o AF/AFL s/p PVI, PWI, anterior Mitral line and right atrial flutter (01/01/25) multiple recurrence of atrial tachycardia flutter presented for SVT ablation.
Date of the Procedure:
01/07/2025
Indications:
Highly symptomatic atrial tachycardia / atrial flutter
Pre-Operative Diagnosis:
Recurrent atrial tachycardia / atrial flutter
Post-Operative Diagnosis:
Recurrent atrial tachycardia / atrial flutter
Procedure Performed:
Atrial tachycardia / Flutter ablation with superior septal origin of the right atrium
Performing Physician:
Sury Ha MD
Assistants:
EP staff
Anesthesia:
See anesthesia records
Detailed Description of the Procedure:
Written informed consent was obtained from the patient after a full explanation of the risks and benefits of the procedure including the risks of sedation and anesthesia.
The patient was brought to the electrophysiology laboratory in stable condition in fasting state. Continuous electrocardiographic and hemodynamic monitoring was initiated.
The initial rhythm was atrial flutter / tachycardia with 105 bpm with 2:1 AV conduction.
The procedure site was meticulously prepared with surgical scrub and allowed to dry with no pooling. Sterile draping was applied to cover the procedure site. The image intensifier was draped with sterile bag and positioned over the patient.
After infusion of local anesthetic, vascular access was obtained under ultrasound guidance and sheaths were placed over guide wire as detailed below.
Sheath and Catheter Placement:
In the right femoral vein, an 8-Syrian sheath was placed for use during the ablation procedure. A second 7-Syrian sheath was placed through which a decapolar catheter was placed in the coronary sinus (CS) for left atrial stimulation and mapping..
The following catheters / sheaths were placed
Sheaths:
��������� 12.5 Fr Agilis sheath in right femoral vein
��������� 9Fr in the right femoral vein
Catheters:
��������� The Affera Sphere 9 catheter -bidirectional D/F� - at locations of HRA, RV, CS and His.
��������� Decapolar Bard catheter - at locations of RA, CS
A 3000 units of heparin was given after the access was complete.
EP study:
A full EP study was done.
Baseline intervals (milliseconds):
PP interval (baseline cycle length): 300
RR interval: 600
QRS duration: 82
QT interval: 425
AH interval: 55
His duration: 12
HV interval: 45
�
Electroanatomic mapping (EAM):
Electroanatomic mapping (EAM) of the right atrium was performed using the Sphere 9 Affera catheter advanced through Agilis sheath. The EAMs of the AFL/ AT were obtained.
The SVT was right atrial origin based on the conduction pattern on the CS. The AT from the right atrium and were mapped. The origin appeared to be coming from the RA septal wall from the superior section at the origin of Betsy bundle. �
The CS was paced and RA map was created in CS pacing showing the block at the CTI with previous CTI line staying blocked.
Of note, there were scar noted at the septal wall with the only conduction at the superior section that was the origin of focal AT vs atrial flutter involving the two chambers.
Using Affera, excellent LAT maps were identified.
Atrial tachycardia Ablation:
Atrial tachycardia / atrial flutter:
Pulse field ablation was performed using Pulsed field ablation was performed using an open irrigation, bidirectional, contact sensing, dual energy ablation catheter (Affera sphere -9).
The ablation catheter was placed at the best unipolar location and ablation was done using pulsed field energy. The ablation resulted in adequate tissue approximation and acceptable temperature rise.
The ablation in the superior septal location was done with termination of the tachycardia into sinus rhythm with small energy. There was long sinus node recovery time noted but had normal sinus rhythm and normal AV conduction
Further consolidated lesions were made around the area and the scar on the septal wall was connected to the ablation lesion.
EP study was done at the end of the case. �Aggressive measures to induce arrhtyhmia was not able to induce the tachycardia.
The CS was paced and the CTI block was confirmed with trans-isthmus conduction time of 140 ms. The EAM of the RA with CS pacing showed block at the CTI.
Procedure End
Following the completion of the EP study, Protamine 30 mg was give and catheters were removed.� The sheaths were removed and hemostasis achieved with �VASCADE� suture and manual compression.
Estimated Blood loss:
<5 cc
Specimens Removed:
None.
Implants / Devices:
None
Urine output:
None
Packs / Drains/ Tubes:
None
Instrument / Sponge Count Correct:
Yes
Complications of the Procedure:
None
Condition of Patient at Time of Transfer:
Hemodynamically stable with no neurological or vascular compromise.
Summary:
Successful Atrial tachycardia / Biatrial flutter ablation with superior septal wall of the right atrium
.
AT / Biatrial flutter
CS pacing map for CTI block
[2025-01-07] MEDS: ANESTHETIC LOZENGE 1 LOZENGE PO (12:27)
== END 2025-01-07 15:20 | disposition home or self-care (01) ==
LOC: CATH 07:52
PROVIDERS: ATTENDING PHYSICIAN Internal Medicine Cardiovascular Disease; FAMILY PHYSICIAN Family Medicine; OTHER PHYSICIAN Internal Medicine
DX: I48.0 Paroxysmal atrial fibrillation (principal); I48.92 Unspecified atrial flutter; I47.19 Other supraventricular tachycardia; I49.1 Atrial premature depolarization; I49.3 Ventricular premature depolarization; I10 Essential (primary) hypertension; I34.0 Nonrheumatic mitral (valve) insufficiency; E78.00 Pure hypercholesterolemia, unspecified; Z85.3 Personal history of malignant neoplasm of breast; Z85.828 Personal history of other malignant neoplasm of skin; Z79.01 Long term (current) use of anticoagulants
CPT/HCPCS: C1894; C1730; C1766; C1733; 85347; 86850; 86900; 86901; 93005; 93653; C1760

== ENCOUNTER → 2025-03-26 09:07 | Outpatient (REF) | payer MEDICARE, BC, SELFPAY ==
[2025-03-26 15:09] LABS: ALT (SGPT) 21 U/L (0-35); AST (SGOT) 23 U/L (14-36); Albumin 4.5 g/dl (3.5-5.0); Alkaline Phosphatase 90 U/L (38-126); Blood Urea Nitrogen 14 mg/dl (7-17); Calcium 10.0 mg/dl (8.4-10.2); Carbon Dioxide 28 mmol/L (22-30); Chloride 101 mmol/L (98-107); Glucose 78 mg/dl (70-99); HDL Cholesterol 77 mg/dl; LDL Cholesterol, Calculated 57 mg/dl; Potassium 4.6 mmol/L (3.5-5.1); Sodium 135 mmol/L (135-145); Total Protein 7.7 g/dl (6.3-8.2); Very Low Density Lipoprotein 12 mg/dl (0-30); eGFR > 60.00
== END ==
LOC: REG 09:07
PROVIDERS: ATTENDING PHYSICIAN Family Medicine
DX: E78.2 Mixed hyperlipidemia (principal)
CPT/HCPCS: 36415; 80053; 80061